=== PATIENT | male | born 1965 | race Caucasian/White ===

== ENCOUNTER → 2018-06-15 01:42 | Outpatient (CLI) | payer BC, SELFPAY ==
--- NOTE | 2018-06-15 10:10 | OPPNE_ITS ---
DATE OF PROCEDURE: JUNE 15, 2018 HISTORY: Mr. Adler has osteoarthritis of his right hip. He had an excellent result from intraarticular injection of corticosteroid in his right hip in November prior to a trip to [place] and [place]. The beneficial effects have now started to wear off. He understands that he will eventually need to undergo a right total hip arthroplasty. PROCEDURE: The patient is greeted in the Fluoroscopy Suite. His anterolateral thigh is prepped with Betadine. I then used 10 cc. of 1% Lidocaine to create an anesthetic wheal over the anterolateral thigh. After waiting approximately 2 1 /2 minutes, I then placed a #22 gauge spinal needle into the right hip joint under fluoroscopic control. I repositioned the needle once making sure I am inside the capsule. I then note that the tip of the needle hits the base of the femoral head indicating proper placement. The patient tolerated this well. I injected the joint with approximately 7 cc. of 0.5% Marcaine plain and 80 mg. of Depo-Medrol. He had no problems or complications. There is no evidence of any bleeding. Routine post-injection instructions were given including ice if he has any local discomfort.
--- NOTE | 2018-06-15 10:15 | DI.REPORT_ITS ---
SYMPTOM/DIAGNOSIS: DJD RIGHT HIP, RT HIP INJECTION FLUOROSCOPY 06/15 Fluoroscopy Time: 1 sec Fluoroscopy was utilized by Dr. Gonzalez during right hip injection. Hard copy shows injection in to the right hip joint.
== END ==
PROVIDERS: Visit Provider Orthopaedic Surgery
DX: M16.11 Unilateral primary osteoarthritis, right hip (principal)
CPT/HCPCS: 20610; 77002

== ENCOUNTER 2019-05-10 02:45 | Outpatient (CLI) | payer OTHER, SELFPAY ==
[2019-05-10 08:22] LABS: Anion Gap 9.2 mmol/L (3-11); BUN 18 mg/dL (7-18); CO2 26.8 mmol/L (21.0-32.0); CREATININE 0.87 mg/dL (0.70-1.30); Calcium 8.7 mg/dL (8.5-10.1); Calculated LDL 173 mg/dL; Chloride 103 mmol/L (98-107); Cholesterol 240 mg/dL (50-200); Glucose 92 mg/dL (70-100); HDL Cholesterol 56 mg/dL (40-60); Potassium 4.4 mmol/L (3.5-5.1); Sodium 139 mmol/L (136-145); Triglyceride 59 mg/dL (30-150)
== END 2019-05-10 03:05 ==
PROVIDERS: PCP Internal Medicine; Visit Provider Internal Medicine
DX: I10 Essential (primary) hypertension (principal); E78.5 Hyperlipidemia, unspecified
CPT/HCPCS: 36415; 80048; 80061; 83721

== ENCOUNTER 2019-06-12 12:18 | Outpatient (CLI) | payer OTHER, SELFPAY ==
--- NOTE | 2019-06-12 12:35 | DI.RAD_ITS ---
SYMPTOMS/DIAGNOSIS: LEFT FOOT PAIN, M79.672 LEFT FOOT: Three views were obtained. There are prominent hypertrophic degenerative changes at multiple sites. There is a mild hallux valgus deformity. No other focal bony abnormality seen.
== END 2019-06-12 12:38 ==
PROVIDERS: PCP Internal Medicine; Visit Provider Podiatrist Foot & Ankle Surgery
DX: M79.672 Pain in left foot (principal); M20.12 Hallux valgus (acquired), left foot; M19.072 Primary osteoarthritis, left ankle and foot
CPT/HCPCS: 73630

== ENCOUNTER 2019-10-18 08:23 | Day surgery (SDC) | payer OTHER, SELFPAY ==
[2019-10-18 08:42] VITALS: BP 125/80; PULSE 60; RESP 16; TEMP 36.7; O2SAT 97
[2019-10-18] MEDS: Lactated Ringers 1,000 ML 80 ML IV (09:10)
[2019-10-18] MEDS: ceFAZolin 2 GM/50 ML BAG IVPB (10:42)
[2019-10-18] MEDS: Sodium Bicarbonate 50 MEQ/50 ML VIAL (10:53)
[2019-10-18] MEDS: Lidocaine 1% Multi-Dose 50 ML VIAL (10:53)
--- NOTE | 2019-10-18 11:06 | W.PM.DSUDISC ---
Discharge Plan Disposition Patient Disposition: HOME Condition: Good Discharge Details Reason For Visit: Right Carpal Tunnel Syndrome Attending Provider: Gabriel Carias Primary Care Provider: Roel Nova Home Meds and New Rx's Prescriptions: New acetaminophen 500 mg tablet 1,000 mg PO Q8H PRN (Reason: pain) Qty: 60 RF: 3 ibuprofen 600 mg tablet 600 mg PO TID PRNQty: 60 RF: 3 No Action valacyclovir 500 mg tablet 500 mg PO BID RF: 0 lisinopril 10 mg tablet 5 mg PO DAILY RF: 0 aspirin [Aspir-81] 81 MG tablet,delayed release (DR/EC) 81 mg PO DAILY RF: 0 Discharge Instructions Stand Alone Forms: Aretha Trevino Tunnel Release Referrals: Gabriel Carias MD [ [facility] STAFF PHYSICIAN] - Activity:: Elevate Remove Dressings/Wound Care:: 48 hours Shower/Bathe:: 48 hours Diet:: As Tolerated Discharge Orders Discharge Orders: Discharge Order (Routine); Ordered 10/18/19 Ordered By: Gabriel Carias DS: Diagnosis Discharge Diagnosis (1) Right carpal tunnel syndrome: Status: Acute
[2019-10-18 11:38] VITALS: BP 126/86; PULSE 54; RESP 16; TEMP 36.3; O2SAT 98
--- NOTE | 2019-10-18 14:21 | W.PM.OP ---
Date of service: 10/18/19 Time of Service: 11:21 Operative Note Operative Note DATE OF PROCEDURE: 10/18/19 PRE-OP DIAGNOSIS: Right Carpal Tunnel Syndrome POST-OP DIAGNOSIS: same PROCEDURE: Right Endoscopic Carpal Tunnel Release SURGEON: Gabriel Carias ANESTHESIA: GETHolly ESTIMATED BLOOD LOSS: 0 PATHOLOGY: none sent TOURNIQUET TIME: 6 COMPLICATIONS: None Patient was transported to: same day Patient's condition: stable Indications: I have seen David in clinic for symptoms of carpal tunnel syndrome. The numbness, tingling, and pain limited function. Clinical exam findings confirmed the diagnosis of carpal tunnel syndrome. Nonoperative measures such as bracing, time, activity modifications had been tried but disability and pain persisted. I discussed carpal tunnel release with the patient. I reviewed the risks of the procedure to include, but not limited to, bleeding, infection, pain, stiffness, incomplete release, damage to nerves or vessels, persistent numbness, recurrence. Despite these risks, the patient elected to proceed. Findings: There was tightened carpal tunnel. This was dilated and released successfully with the endoscopic with increased space within the tunnel. The antebrachial fascia was released proximally freeing the median nerve at the wrist. Procedure Description: David was greeted in the preoperative holding area where the correct side was identified and marked. The consent was reviewed with the patient and signed. The history and physical was updated. All questions were answered. David was taken back to the operating room. The patient was placed into the supine position on the operating room table with the right arm on an arm board. A nonsterile tourniquet was placed high onto the arm. All bony prominences were well padded. Prophylactic antibiotics in the form of Cefazolin were administered. The right arm was then prepped with Chloraprep and draped in a standard fashion with stockinette and extremity drape. A timeout to confirm correct identity, side and site, procedure, allergies, anesthesia, and medical concerns was performed. The surgical site was marked in the volar wrist creases in line with the radial border of the fourth ray. This area was anesthetized with approximately 6cc of 1% Lidocaine. The limb was then exsanguinated with an Esmarch. The skin was incised with a 15 blade, approximately 1cm. The skin only was cut and the deeper tissue was dissected bluntly with a tenotomy scissor, avoiding passing nerve and venous structures. The fascia was penetrated and opened bluntly. A two-prong skin hook was placed under this proximal fascial edge. A series of hamate finders were used to identify and dilate the carpal tunnel. Synovial elevator was used to free synovial attachments to the underside of the transverse carpal ligament. My thumb was kept in the palm to marlee the distal extent of the carpal tunnel and correctly position the hand. The Microaire endoscope was inserted without difficulty and without resistance. Excellent visualization showed horizontally running fibers of the transverse carpal ligament (TCL). The distal extent of the TCL was visualized and the end of the scope palpated with the thumb. The blade was elevated and withdrawn from distal to proximal. The TCL was split into two flaps. The endoscope was reinserted to confirm complete release and any remnant ligament was incised. The scope was withdrawn and the proximal aspect of the carpal tunnel was grossly inspected and appeared release with the median nerve visible. The antebrachial fascia at the level of the wrist was then freed from the overlying skin and then the underlying median nerve with blunt dissection. This was transected longitudinally for about 3cm proximal to the wrist incision. The wound was then irrigated with easy flow of irrigant distally and proximally. The incision was closed with a single 4-0 Nylon suture. The wound was dressed with Xeroform, Gauze, Kerlix and Roberto. The tourniquet was deflated with the initial dressing and held with some pressure. Blood flow returned easily to all digits with capillary refill less than 2 seconds. The patient tolerated the procedure well and was returned to the Same Day Surgery area in a stable condition suffering no known complication.
== END 2019-10-18 12:14 | disposition home or self-care (01) ==
PROVIDERS: PCP Internal Medicine; Visit Provider Student in an Organized Health Care Education/Training Program
PROC: 01N54ZZ Release Median Nerve, Percutaneous Endoscopic Approach (ICD-10-PCS; CPT 29848; principal; 2019-10-18 10:15)
DX: G56.01 Carpal tunnel syndrome, right upper limb (principal)
CPT/HCPCS: 29848; J0690; J1885; L3650

== ENCOUNTER 2019-10-22 08:30 | Day surgery (SDC) | payer OTHER, SELFPAY ==
[2019-10-22 08:41] VITALS: BP 143/95; PULSE 60; RESP 16; TEMP 36.2; O2SAT 95
[2019-10-22] MEDS: Lactated Ringers 1,000 ML 80 ML IV (09:02)
[2019-10-22] MEDS: ceFAZolin 2 GM/50 ML BAG IVPB (09:47)
[2019-10-22] MEDS: Lidocaine 1% Multi-Dose 50 ML VIAL (09:54)
[2019-10-22] MEDS: Sodium Bicarbonate 50 MEQ/50 ML VIAL (09:54)
--- NOTE | 2019-10-22 10:07 | W.PM.DSUDISC ---
Discharge Plan Disposition Patient Disposition: HOME Condition: Good Discharge Details Reason For Visit: (L) CTS Attending Provider: Gabriel Carias Primary Care Provider: Roel Nova Meds and New Rx's Prescriptions: Continued valacyclovir 500 mg tablet 500 mg PO BID RF: 0 lisinopril 10 mg tablet 5 mg PO DAILY RF: 0 aspirin [Aspir-81] 81 MG tablet,delayed release (DR/EC) 81 mg PO DAILY RF: 0 acetaminophen 500 mg tablet 1,000 mg PO Q8H PRN (Reason: pain) Qty: 60 RF: 3 ibuprofen 600 mg tablet 600 mg PO TID PRNQty: 60 RF: 3 Discharge Instructions Stand Alone Forms: Aretha Trevino Tunnel Release Referrals: Gabriel Carias MD [ [facility] STAFF PHYSICIAN] - Activity:: Elevate Remove Dressings/Wound Care:: 48 hours Shower/Bathe:: 48 hours Diet:: As Tolerated Discharge Orders Discharge Orders: Discharge Order (Routine); Ordered 10/22/19 Ordered By: Gabriel Carias DS: Diagnosis Discharge Diagnosis (1) Left carpal tunnel syndrome: Status: Acute
--- NOTE | 2019-10-22 10:25 | W.PM.OP ---
Date of service: 10/22/19 Time of Service: 10:25 Operative Note Operative Note DATE OF PROCEDURE: 10/22/19 PRE-OP DIAGNOSIS: Left Carpal Tunnel Syndrome POST-OP DIAGNOSIS: same PROCEDURE: Left Endoscopic Carpal Tunnel Release SURGEON: Gabriel Carias ANESTHESIA: JOEL ESTIMATED BLOOD LOSS: 0 PATHOLOGY: none sent TOURNIQUET TIME: 7 COMPLICATIONS: None Patient was transported to: same day Patient's condition: stable Indications: I have seen David in clinic for symptoms of carpal tunnel syndrome. The numbness, tingling, and pain limited function. Clinical exam findings confirmed the diagnosis of carpal tunnel syndrome. Nonoperative measures such as bracing, time, activity modifications had been tried but disability and pain persisted. I discussed carpal tunnel release with the patient. I reviewed the risks of the procedure to include, but not limited to, bleeding, infection, pain, stiffness, incomplete release, damage to nerves or vessels, persistent numbness, recurrence. Despite these risks, the patient elected to proceed. Findings: There was tightened carpal tunnel. This was dilated and released successfully with the endoscopic with increased space within the tunnel. The antebrachial fascia was released proximally freeing the median nerve at the wrist. Procedure Description: David was greeted in the preoperative holding area where the correct side was identified and marked. The consent was reviewed with the patient and signed. The history and physical was updated. All questions were answered. David was taken back to the operating room. The patient was placed into the supine position on the operating room table with the left arm on an arm board. A nonsterile tourniquet was placed high onto the arm. All bony prominences were well padded. Prophylactic antibiotics in the form of Cefazolin were administered. The left arm was then prepped with Chloraprep and draped in a standard fashion with stockinette and extremity drape. A timeout to confirm correct identity, side and site, procedure, allergies, anesthesia, and medical concerns was performed. The surgical site was marked in the volar wrist creases in line with the radial border of the fourth ray. This area was anesthetized with approximately 6cc of 1% Lidocaine. The limb was then exsanguinated with an Esmarch. The skin was incised with a 15 blade, approximately 1cm. The skin only was cut and the deeper tissue was dissected bluntly with a tenotomy scissor, avoiding passing nerve and venous structures. The fascia was penetrated and opened bluntly. A two-prong skin hook was placed under this proximal fascial edge. A series of hamate finders were used to identify and dilate the carpal tunnel. Synovial elevator was used to free synovial attachments to the underside of the transverse carpal ligament. My thumb was kept in the palm to marlee the distal extent of the carpal tunnel and correctly position the hand. The Microaire endoscope was inserted without difficulty and without resistance. Excellent visualization showed horizontally running fibers of the transverse carpal ligament (TCL). The distal extent of the TCL was visualized and the end of the scope palpated with the thumb. The blade was elevated and withdrawn from distal to proximal. The TCL was split into two flaps. The endoscope was reinserted to confirm complete release and any remnant ligament was incised. The scope was withdrawn and the proximal aspect of the carpal tunnel was grossly inspected and appeared release with the median nerve visible. The antebrachial fascia at the level of the wrist was then freed from the overlying skin and then the underlying median nerve with blunt dissection. This was transected longitudinally for about 3cm proximal to the wrist incision. The wound was then irrigated with easy flow of irrigant distally and proximally. The incision was closed with a single 4-0 Nylon suture. The wound was dressed with Xeroform, Gauze, Kerlix and Roberto. The tourniquet was deflated with the initial dressing and held with some pressure. Blood flow returned easily to all digits with capillary refill less than 2 seconds. The patient tolerated the procedure well and was returned to the Same Day Surgery area in a stable condition suffering no known complication.
[2019-10-22 10:55] VITALS: BP 137/95; PULSE 57; RESP 18; TEMP 36.1; O2SAT 96
== END 2019-10-22 11:20 | disposition home or self-care (01) ==
LOC: SUR 13:27
PROVIDERS: PCP Internal Medicine; Visit Provider Student in an Organized Health Care Education/Training Program
PROC: 01N54ZZ Release Median Nerve, Percutaneous Endoscopic Approach (ICD-10-PCS; CPT 29848; principal; 2019-10-22 10:30)
DX: G56.02 Carpal tunnel syndrome, left upper limb (principal)
CPT/HCPCS: 29848; J0690

== ENCOUNTER 2019-11-05 02:26 | Outpatient (CLI) | payer OTHER, SELFPAY ==
[2019-11-05 08:17] LABS: Anion Gap 8.2 mmol/L (3-11); BUN 16 mg/dL (7-18); CO2 29.8 mmol/L (21.0-32.0); CREATININE 0.92 mg/dL (0.70-1.30); Calculated LDL 163 mg/dL; Chloride 103 mmol/L (98-107); Cholesterol 239 mg/dL (<200); Glucose 86 mg/dL (74-106); HDL Cholesterol 60 mg/dL (40-60); Potassium 4.4 mmol/L (3.5-5.1); Sodium 141 mmol/L (136-145); Triglyceride 83 mg/dL (<150)
== END 2019-11-05 02:46 ==
PROVIDERS: PCP Internal Medicine; Visit Provider Internal Medicine
DX: E78.5 Hyperlipidemia, unspecified (principal); I10 Essential (primary) hypertension
CPT/HCPCS: 36415; 80048; 80061

== ENCOUNTER 2020-10-30 21:58 | Outpatient (REF) | payer OTHER, SELFPAY ==
[2020-10-30 22:22] LABS: Abs Immature Grans 0.03 10^3/uL (0.0-0.06); Absolute Basophil Count 0.09 10^3/uL (0.0-0.2); Absolute Eosinophil Count 0.22 10^3/uL (0.0-0.7); Absolute Lymphocyte Count 2.71 10^3/uL (1.2-3.4); Absolute Monocyte Count 1.08 10^3/uL (0.1-0.8); Absolute Neutrophil Count 3.81 10^3/uL (1.2-6.7); Basophils % 1.1; Eosinophils % 2.8; HGB 15.5 g/dL (13.5-17.5); Immature Grans % 0.4; Lymphocytes % 34.1; MCH 30.7 pg (27.0-33.0); MCHC 34.4 % (32.0-36.0); MCV 89.1 fL (80-95); MPV 9.5 fL (8.0-11.0); Monocytes % 13.6; Nucleated RBC 0 %; Platelet Count 294 10^3/uL (130-400); RBC 5.05 10^6/uL (4.36-5.78); RDW 12.1 % (11.8-14.1); RDW-SD 39.9 fL; WBC 7.94 10^3/uL (4.4-10.8)
[2020-10-30 22:26] LABS: Anion Gap 9.9 mmol/L (3-11); BUN 23 mg/dL (7-18); CO2 26.1 mmol/L (21.0-32.0); CREATININE 1.03 mg/dL (0.70-1.30); Calcium 9.2 mg/dL (8.5-10.1); Chloride 101 mmol/L (98-107); Glucose 85 mg/dL (74-106); Potassium 4.1 mmol/L (3.5-5.1); Sodium 137 mmol/L (136-145)
== END 2020-10-30 22:18 ==
LOC: NCHCN 21:58
PROVIDERS: PCP Internal Medicine; Visit Provider Internal Medicine
DX: R10.31 Right lower quadrant pain (principal)
CPT/HCPCS: 80048; 85025

== ENCOUNTER 2020-11-04 12:47 | Outpatient (REF) | payer OTHER, SELFPAY ==
[2020-11-04 18:13] LABS: Calculated LDL 184 mg/dL (<100); Cholesterol 258 mg/dL (<200); HDL Cholesterol 60 mg/dL (40-60); Triglyceride 72 mg/dL (<150)
[2020-11-04 22:37] LABS: PSA, Screening 1.6 ng/mL (0.0-3.5)
== END 2020-11-04 13:07 ==
LOC: NCHCN 12:47
PROVIDERS: PCP Internal Medicine; Visit Provider Internal Medicine
DX: Z00.00 Encounter for general adult medical examination without abnormal findings (principal); I10 Essential (primary) hypertension; E78.5 Hyperlipidemia, unspecified; Z12.5 Encounter for screening for malignant neoplasm of prostate
CPT/HCPCS: 80061; 84153

== ENCOUNTER 2020-11-12 03:09 | Outpatient (CLI) | payer OTHER, SELFPAY ==
--- NOTE | 2020-11-12 | DI.US_ITS ---
EXAM: US RENAL CLINICAL HISTORY: RT FLANK PAIN, R10.9. TECHNIQUE: Gonzalez scale, color and spectral Doppler were used. COMPARISON: No exams were available for comparison FINDINGS: Renal size in cm: Right: 10.9. Left: 13.9. Echogenicity: Normal. Hydronephrosis: No. Cyst or mass: No. Nephrolithiasis: No. Other findings: None. Bladder:Normal. Ureteral jets: Right: Visualized and unremarkable. Left: Visualized and unremarkable. Prevoid vol:226 cc Postvoid vol:47 cc Prostate: 26 cc Renal color flow: Symmetric and within normal limits. IMPRESSION: 1. No evidence of nephrolithiasis or hydronephrosis. 2. Small postvoid urinary bladder residual. DATA REPOSITORY:
== END 2020-11-12 03:29 ==
PROVIDERS: PCP Internal Medicine; Visit Provider Internal Medicine
DX: R10.9 Unspecified abdominal pain (principal); R39.198 Other difficulties with micturition
CPT/HCPCS: 76770

== ENCOUNTER 2021-02-10 15:47 | Emergency (ER) | payer OTHER, SELFPAY ==
[2021-02-10 16:01] VITALS: BP 145/82; PULSE 70; RESP 16; TEMP 36.9; O2SAT 99
--- NOTE | 2021-02-10 16:24 | ED.GENADUL_ITS ---
Discharge Plan Disposition Patient Disposition: HOME Condition: Improving Discharge Details Clinical Impression: Tinea corporis Primary Care Provider: Roel Nova ED Provider: Jean Paul Martini Home Meds and New Rx's Prescriptions: New nystatin 100,000 unit/mL suspension 5 ml PO TID 5 Days Qty: 75 RF: 0 fluconazole 200 mg tablet 200 mg PO DAILY 14 Days Qty: 14 RF: 0 Continued valacyclovir 500 mg tablet 500 mg PO BID RF: 0 lisinopril 10 mg tablet 5 mg PO DAILY RF: 0 aspirin [Aspir-81] 81 MG tablet,delayed release (DR/EC) 81 mg PO DAILY RF: 0 acetaminophen 500 mg tablet 1,000 mg PO Q8H PRN (Reason: pain) Qty: 60 RF: 3 ibuprofen 600 mg tablet 600 mg PO TID PRNQty: 60 RF: 3 Discontinued fluconazole 100 mg tablet 100 mg PO DAILY RF: 0 Discharge Instructions Instructions: Skin Yeast Infection (ED) Additional Instructions: Nystatin oral solution 5 cc swish and spit as directed by prescription. Apply combination antifungal and steroid cream topically twice daily until finished. Take fluconazole once daily for 2 weeks. May use famotidine, available [id number] once daily as an antihistamine. You may also use Benadryl 25 to 50 mg at night for an antihistamine and to aid with sleep We will ask care management to make you a follow-up appointment in Dr. Nova's office for recheck. Your labs including CBC, comprehensive panel, CRP were reassuring. Return to the ER for any acute concerns. Medical Decision Making 55-year-old male who has a pruritic rash to begin in his groin 1 week ago. Began to spread when he was in [place], he was seen at an urgent care, placed on a prednisone taper 50 mg dropping by 10 mg every 2 days over total of 10 days. This offered little improvement, he was seen at his primary care physician's office yesterday, given 100 mg fluconazole once and then asked to take 100 mg daily for the next 5 days. He now presents with persistent itching and concern for the rash. It does appear consistent with fungal infection, tinea corporis and pruritus. Question some component of thrush. Will screen with blood work to check his liver function and basic labs. Discussed with pharmacy. Little to low topical or mucous membrane absorption and placed on swish and spit nystatin 3 times a day for 5 days, and continue ketoconazole 200 mg daily for 2 weeks. Labs are reassuring. Patient understands outpatient course of treatment. We will arrange follow-up for him in clinic. He is stable for discharge to home HPI General Mode of arrival: ambulatory . Date/Time Provider Initiated Documentation: 02/10/21 15:56 . Limitations to Documentation: no limitations . Information obtained by: patient . History of Present Illness 55 year old M presents to the emergency department with the chief complaint of Itching rash, started in the groin, described as moderate, Quality is described as dull and constant, Patient started experiencing this day(s) and it has been constant. No relieving factors improve symptom(s), No exacerbating factors reported . Patient notes no other symptoms.. Patient did receive the following treatments prior to arrival, none Related Data Home Medications Medication Instructions Recorded Confirmed aspirin [Aspir-81] 81 mg PO DAILY 05/29/14 02/10/21 lisinopril 10 mg tablet 5 mg PO DAILY tab 11/21/18 02/10/21 valacyclovir 500 mg tablet 500 mg PO BID 11/21/18 02/10/21 acetaminophen 1,000 mg PO Q8H PRN #60 tab 10/18/19 02/10/21 ibuprofen 600 mg PO TID PRN #60 tab 10/18/19 02/10/21 fluconazole 200 mg PO DAILY 14 Days #14 tab 02/10/21 nystatin 5 ml PO TID 5 Days #75 ml 02/10/21 Previous Rx's Medication Instructions Recorded acetaminophen 1,000 mg PO Q8H PRN #60 tab 10/18/19 ibuprofen 600 mg PO TID PRN #60 tab 10/18/19 fluconazole 200 mg PO DAILY 14 Days #14 tab 02/10/21 nystatin 5 ml PO TID 5 Days #75 ml 02/10/21 Allergies Allergy/AdvReac Type Severity Reaction Status Date / Time amoxicillin Allergy Mild Unverified 02/10/21 16:24 General Stated Complaint: RashLesion JON: 3 Review of Systems Narrative: 6 systems reviewed and otherwise [facility] Medical History BMI 29.0-29.9,adult Herniated disc Hypercholesteremia Hypertension Obstructive sleep apnea Sensorineural hearing loss, bilateral (09/29/16) Surgical History (Updated 10/28/19 @ 09:20 by DAVID Pastor) History of carpal tunnel release R ECTR Left carpal tunnel syndrome s/p ECTR 10/22/2019 Right carpal tunnel syndrome s/p ECTR 10/18/2019 Social History Smoking/Tobacco Use Status: Never Smoking risk assessment performed?: Yes Alcohol Intake: current Alcohol Intake frequency: 0-2 drinks per day Drug use: Never Substance use type: does not use Household members: spouse Current gender identity: male Do you feel safe at home: Yes Do you feel safe in your relationship?: Yes Exam Narrative Exam Narrative: GEN: awake, alert, oriented 3. Pleasant, well groomed, interactive. HEAD: Normocephalic, atraumatic ENT: Mucous membranes moist, oropharynx unremarkable, External ear exam unremarkable EYES: PERRL, EOMI NECK: Full ROM, no ASMITA, no menigismus CHEST/RESP: Nontender, clear to auscultation bilateral, no wheeze/rhonchi/rales CARDIOVASCULAR: RRR, no murmur, rub demi. 2+ Rad pulse bilateral ABDOMEN: Soft, nontender, no mass. +Bowel sounds EXT: Full ROM, no edema There is a beefy red, intertriginous rash primarily upper quadrant and waistline, slight scaling, also present in small patches on extremities and thorax. Neuro: Grossly normal neurologic exam, conversant, interactive. Psych: Speech fluent, thoughts congruent, affect normal Course Vital Signs Vital signs: Vital Signs Temperature 36.9 C 02/10/21 16:01 Pulse 70 02/10/21 16:01 Respiratory Rate 16 02/10/21 16:01 Blood Pressure 145/82 H 02/10/21 16:01 Pulse Oximetry 99 02/10/21 16:01 Temperature 36.9 C 02/10/21 16:01 Temperature Source Temporal Artery Scan 02/10/21 16:01 Pulse 70 02/10/21 16:01 Respiratory Rate 16 02/10/21 16:01 Respiratory Effort Non-Labored 02/10/21 16:22 Blood Pressure 145/82 H 02/10/21 16:01 Blood Pressure Position Supine 02/10/21 16:01 Pulse Oximetry 99 02/10/21 16:01 Oxygen Delivery Method Room Air 02/10/21 16:01 Oxygen Flow Rate 0 02/10/21 16:01 Pain Level 2 02/10/21 16:01
[2021-02-10] MEDS: Nystatin 500000 UNITS/5 ML SUSP 5ML CUP PO (17:01)
[2021-02-10 17:04] LABS: Abs Immature Grans 0.06 10^3/uL (0.0-0.06); Absolute Basophil Count 0.08 10^3/uL (0.0-0.2); Absolute Eosinophil Count 0.77 10^3/uL (0.0-0.7); Absolute Lymphocyte Count 2.44 10^3/uL (1.2-3.4); Absolute Neutrophil Count 4.04 10^3/uL (1.2-6.7); Basophils % 0.9; HCT 46.3 % (40.0-50.0); HGB 15.9 g/dL (13.5-17.5); Immature Grans % 0.7; Lymphocytes % 28.4; MCH 30.9 pg (27.0-33.0); MCHC 34.3 % (32.0-36.0); MCV 90.1 fL (80-95); MPV 8.9 fL (8.0-11.0); Nucleated RBC 0 %; Platelet Count 274 10^3/uL (130-400); RBC 5.14 10^6/uL (4.36-5.78); RDW 12.5 % (11.8-14.1); RDW-SD 41.2 fL; WBC 8.59 10^3/uL (4.4-10.8)
[2021-02-10 17:15] LABS: ALT 56 U/L (16-63); AST 20 U/L (15-37); Albumin 4.3 g/dL (3.4-5.0); Alkaline Phosphatase 102 U/L (46-116); Anion Gap 9.4 mmol/L (3-11); BUN 16 mg/dL (7-18); Bilirubin, Total 0.3 mg/dL (0.2-1.0); C-Reactive Protein 0.07 mg/dL (0.0-0.3); CO2 27.6 mmol/L (21.0-32.0); Calcium 9.6 mg/dL (8.5-10.1); Chloride 103 mmol/L (98-107); Glucose 92 mg/dL (74-106); Potassium 4.1 mmol/L (3.5-5.1); Sodium 140 mmol/L (136-145); Total Protein 8.1 g/dL (6.4-8.2)
--- NOTE | 2021-02-10 17:18 | NUR.NOTE ---
Nursing Note: Referral to [facility] faxed for follow up in 3 to 5 days for recheck of rash. Rose Marie Aggarwal
== END 2021-02-10 17:37 | disposition home or self-care (01) ==
PROVIDERS: Emergency Provider Emergency Medicine; PCP Internal Medicine
DX: B35.4 Tinea corporis (principal); L29.8 Other pruritus
CPT/HCPCS: 36415; 80053; 99283; 85025; 86140; J3490

== ENCOUNTER 2021-02-12 15:30 | Outpatient (REF) | payer OTHER, SELFPAY ==
--- NOTE | 2021-02-12 11:30 | SKI_PTH ---
PATIENT: Rudy Adler LOC: [facility] U#:[id number] AGE/SX: 55/M ROOM: RE02/12/[address]: Alex Jesus : 1965 BED: DIS: 02/12/2021 SPEC #: [id number] RECD: 02/15/21 12:37 STATUS: MEMO REQ #: [id number] JULISSA: 02/12/21 11:[address]: Alex Jesus DEPT: Surgical Specimen RECD BY: Lourdes Mg ENTERED: 02/15/21 12:38 SP TYPE: TEDDY KULKARNI DR: Roel Nova Tissues: 1 - SKIN BIOPSY(SHAVE/PUNCH) Procedures: SKIN LEVEL 4 Comments: [id number]
== END 2021-02-12 15:31 | disposition home or self-care (01) ==
LOC: NCHCN 15:30
PROVIDERS: PCP Internal Medicine; Visit Provider Family Medicine
DX: L30.8 Other specified dermatitis (principal)
CPT/HCPCS: 88305

== ENCOUNTER 2021-03-11 02:02 | Outpatient (CLI) | payer OTHER, SELFPAY ==
--- NOTE | 2021-03-11 12:39 | DI.RAD_ITS ---
Exam(s) XR ELBOW LT COMPLETE EXAM: XR ELBOW LT COMPLETE CLINICAL HISTORY: LT OLECRANON BURSITIS, M70.22. TECHNIQUE: 2D digital imaging was performed. COMPARISON: No exams were available for comparison FINDINGS: There is no evidence of acute fracture or joint effusion. Radial head appears unremarkable as does t he capitellum. Posteriorly there are multiple contiguous calcifications in the slightly swollen olecranon bursa, jus t superficial to the triceps insertion. These measure or 15 millimeters total length by 3 millimeter s wide. On the frontal view there are cortical findings at the level of both epicondyles consistent with prob able epicondylitis. IMPRESSION: Posterior calcifications-calcific olecranon bursitis. Bilateral epicondylitis. DATA REPOSITORY: RADIATION DOSE DELIVERED:
== END 2021-03-11 02:22 ==
PROVIDERS: PCP Internal Medicine; Visit Provider Family Medicine
DX: M70.22 Olecranon bursitis, left elbow (principal)
CPT/HCPCS: 73080

== ENCOUNTER 2021-05-27 01:56 | Outpatient (CLI) | payer OTHER, SELFPAY ==
--- NOTE | 2021-05-27 08:00 | DI.RAD_ITS ---
Exam(s) RF JOINT INJECTION FLUORO GUID EXAM: RF JOINT INJECTION FLUORO GUID CLINICAL HISTORY: R HIP INJ UNDER FLUORO,arthritis rt hip, m16.11 TECHNIQUE: Fluoroscopy provided. Radiologist not present. CONTRAST MATERIAL: None COMPARISON: No exams were available for comparison FINDINGS: Fluoroscopy was provided for Dr. Carias during therapeutic right hip injection. Submitted image(s) reveal the placement from lateral approach at the junction of lateral aspect of th e femoral head and neck. There is intra articular contrast injected. Please refer to the procedure report for complete details. Cumulative Dose: winter Gupta=0.079 mGy IMPRESSION: RADIATION DOSE DELIVERED:
--- NOTE | 2021-05-27 08:00 | DI.RAD_ITS ---
Exam(s) RF JOINT INJECTION FLUORO GUID EXAM: RF JOINT INJECTION FLUORO GUID CLINICAL HISTORY: L HIP INJ UNDER FLUORO,arthritis lt hip, m16.12 TECHNIQUE: Fluoroscopy provided. Radiologist not present. CONTRAST MATERIAL: None COMPARISON: No exams were available for comparison FINDINGS: Fluoroscopy was provided for Dr. Carias during therapeutic left hip injection.. Submitted image(s) reveal needle placement at the lateral aspect of the femoral head-neck junction. Contrast injected. Please refer to the procedure report for complete details. Cumulative Dose: Ka,r=0.0959 mGy IMPRESSION: RADIATION DOSE DELIVERED:
[2021-05-27] MEDS: Bupivacaine 0.5% Pres-Free 10 ML VIAL 5 ML IJ (14:10)
[2021-05-27] MEDS: methylPREDNISolone ACETATE 80 MG/ML VIAL IM ×2 (14:11→14:12)
[2021-05-27] MEDS: Omnipaque 300 MG/ML 10 ML BTL IJ (14:11)
--- NOTE | 2021-05-28 07:32 | OPPNE_ITS ---
Date of service: 05/27/21 Time of Service: 13:32 Procedure Note Date of procedure: 05/27/21 Procedure: Bilateral Hip Injection with Fluoroscopic Guidance Surgeon/Proceduralist/Physician: Gabriel Carias Procedure Diagnosis: Bilateral Hip Impingement and Osteoarthritis Procedure Indications: David has had persistent pain of the bilateral hip and groin. He has hip impingement and early osteoarthritis. Noninvasive measures have been tried. To serve as both diagnostic and therapeutic, an injection under fluoroscopy was recommended. I had discussed the risks of the procedure and the patient elected to proceed. Procedure Description: David was greeted in the flouroscopy room. The correct side was identified and the consent was reviewed with the patient and signed. The patient was then placed in the supine position on the fluoroscopy table. The RIGHT hip was then prepped with Chloraprep. The anterolateral injection starting point was identiifed by bony landmarks and fluoroscopy. The skin and soft tissue in the tract of the injection was anesthetized with 1% Lidocaine. A spinal needle was then inserted deep into the hip joint at the level of the lateral femoral neck under fluoroscopic guidance. A small amount of Omnipaque solution was injected to confirm intraarticular placement. Once confirmed, the hip was injected with 5cc of 0.5% Bupivicaine and 80mg of Depo- Medrol. A bandaid was placed on the injection site. Attention was then turned to the left hip. The LEFT hip was then prepped with Chloraprep. The anterolateral injection starting point was identiifed by bony landmarks and fluoroscopy. The skin and soft tissue in the tract of the injection was anesthetized with 1% Lidocaine. A spinal needle was then inserted deep into the hip joint at the level of the lateral femoral neck under fluoroscopic guidance. A small amount of Omnipaque solution was injected to confirm intraarticular placement. Once confirmed, the hip was injected with 5cc of 0.5% Bupivicaine and 80mg of Depo-Medrol. A bandaid was placed on the injection site. The patient tolerated the procedure well and noted improvement in pre-injection pain.
== END 2021-05-27 02:16 ==
PROVIDERS: PCP Internal Medicine; Visit Provider Student in an Organized Health Care Education/Training Program
DX: M16.12 Unilateral primary osteoarthritis, left hip (principal); M16.11 Unilateral primary osteoarthritis, right hip; M25.852 Other specified joint disorders, left hip; M25.851 Other specified joint disorders, right hip; M25.551 Pain in right hip; M25.552 Pain in left hip; R10.31 Right lower quadrant pain; R10.32 Left lower quadrant pain
CPT/HCPCS: 20610 ×2; 77002; J1040

== ENCOUNTER 2021-07-26 16:30 | Outpatient (CLI) | payer OTHER, SELFPAY ==
--- NOTE | 2021-07-26 15:45 | DI.RAD_ITS ---
Exam(s) XR HIP LT COMPLETE AP PELVIS EXAM: XR HIP LT COMPLETE AP PELVIS INDICATION: left hip pain. COMPARISON: CR PELVIS AP from 10/02/2017 TECHNIQUE: 2D digital imaging was performed. FINDINGS: Is moderate narrowing of the right hip joint space and periarticular spurring. Findings have progres sed somewhat when compared with the previous exam. There is mild narrowing of the left hip joint spa ce and mild periarticular spurring. Enthesophytes are noted at the iliac wings. There is some spurr ing at both SI joints, left greater than right. IMPRESSION: Moderate to severe degenerative changes of the right hip. [id number] degenerative changes of t he left hip. DATA REPOSITORY: RADIATION DOSE DELIVERED:
== END 2021-07-26 16:31 | disposition home or self-care (01) ==
LOC: DIORS 16:30
PROVIDERS: PCP Internal Medicine; Referring Provider Internal Medicine; Visit Provider Physician Assistant
DX: M25.552 Pain in left hip (principal); M16.0 Bilateral primary osteoarthritis of hip
CPT/HCPCS: 73502

== ENCOUNTER 2021-10-18 03:53 | Outpatient (CLI) | payer OTHER, SELFPAY ==
[2021-10-18 10:31] LABS: Source Nasal/Nares
[2021-10-18 14:17] LABS: COVID-19 PCR Negative (Negative)
== END 2021-10-18 03:54 | disposition home or self-care (01) ==
LOC: LBO 03:58
PROVIDERS: PCP Family Medicine; Visit Provider Student in an Organized Health Care Education/Training Program
DX: Z20.822 Contact with and (suspected) exposure to COVID-19 (principal); Z01.818 Encounter for other preprocedural examination
CPT/HCPCS: 87635

== ENCOUNTER 2021-10-18 04:03 | Outpatient (CLI) | payer OTHER, SELFPAY ==
[2021-10-18 08:42] LABS: HCT 45.2 % (40.0-50.0); HGB 15.3 g/dL (13.5-17.5); MCH 30.1 pg (27.0-33.0); MCHC 33.8 % (32.0-36.0); MCV 88.8 fL (80-95); MPV 9.3 fL (8.0-11.0); Platelet Count 246 10^3/uL (130-400); RBC 5.09 10^6/uL (4.36-5.78); RDW 12.4 % (11.8-14.1); WBC 7.09 10^3/uL (4.4-10.8)
[2021-10-18 09:25] LABS: Anion Gap 10.4 mmol/L (3-11); BUN 17 mg/dL (7-18); CO2 26.6 mmol/L (21.0-32.0); Calcium 9.1 mg/dL (8.5-10.1); Chloride 100 mmol/L (98-107); Glucose 104 mg/dL (74-106); Potassium 4.3 mmol/L (3.5-5.1); Sodium 137 mmol/L (136-145)
== END 2021-10-18 04:04 | disposition home or self-care (01) ==
LOC: LBO 04:03
PROVIDERS: PCP Family Medicine; Visit Provider Student in an Organized Health Care Education/Training Program
DX: M16.11 Unilateral primary osteoarthritis, right hip (principal); Z01.812 Encounter for preprocedural laboratory examination
CPT/HCPCS: 36415; 80048; 85027; 86850; 86900; 86901

== ENCOUNTER 2021-10-19 06:04 | Day surgery (SDC) | payer OTHER, SELFPAY ==
[2021-10-19] VITALS (15 sets, daily range): BP systolic 81–133; BP diastolic 40–92; PULSE 54–73; RESP 13–24; TEMP 36.1–36.7; O2SAT 96–99; BMI 29.5
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
[2021-10-19] MEDS: Lactated Ringers 1,000 ML 80 ML IV (06:37)
[2021-10-19] MEDS: Acetaminophen 500 MG TAB 1000 MG PO (06:38)
[2021-10-19] MEDS: Celecoxib 200 MG CAP 400 MG PO (06:38)
--- NOTE | 2021-10-19 06:41 | W.PM.DSUDISC ---
Discharge Plan Disposition Patient Disposition: HOME Condition: Stable Discharge Details Reason For Visit: right total hip replacement and left hip injection Attending Provider: Gabriel Carias Primary Care Provider: Alex Jesus Home Meds and New Rx's Prescriptions: New celecoxib [Celebrex] 200 mg capsule 200 mg PO BID Qty: 60 RF: 0 aspirin 81 mg tablet,delayed release (DR/EC) 81 mg PO BID Qty: 60 RF: 0 pantoprazole [Protonix] 40 mg tablet,delayed release (DR/EC) 40 mg PO DAILY Qty: 30 RF: 0 acetaminophen 500 mg capsule 1,000 mg PO Q8H PRN PRNQty: 90 RF: 0 oxycodone 5 mg tablet 5 mg PO Q4H PRNQty: 18 RF: 0 Continued simvastatin 10 mg tablet 10 mg PO DAILY RF: 0 tamsulosin [Flomax] 0.4 mg capsule 0.4 mg PO DAILY RF: 0 lisinopril 10 mg tablet 5 mg PO DAILY RF: 0 valacyclovir 500 mg tablet 500 mg PO BID PRNRF: 0 acetaminophen 500 mg tablet 1,000 mg PO Q8H PRN (Reason: pain) Qty: 60 RF: 3 Discontinued aspirin [Aspir-81] 81 MG tablet,delayed release (DR/EC) 81 mg PO DAILY RF: 0 ibuprofen 600 mg tablet 600 mg PO TID PRNQty: 60 RF: 3 Discharge Instructions Additional Instructions: Total Hip Discharge Instructions Activity: The most important activity is to walk. You should try to take short walks a few times a day. You have no restrictions on movement or positioning, but do not try to force what you do. You will find some stiffness and weakness with hip flexion (lifting your knee). Do not try to strengthen this too early, continue to practice walking and stairs and this will come. - Outpatient physical therapy can be helpful to help return you to a normal gait and improve your flexibility and strength. This can start around 2 weeks. For some patients, it?s not necessary. Usually this is determined at the time of discharge or at the first post-operative visit. - You should wear the MEKHI hose on both legs for 2 weeks. Dressing: Keep the surgical dressing in place for at least one week. After the first week it may be removed and replace with light gauze and tape or nothing. It may get wet after 3 days but avoid soaking the dressing. If it gets wet, just lightly pat dry. It is important to always keep some gauze between skin folds, especially when you are sitting. Spend some time with the wound exposed when you are lying flat as the incision does wrinkle onto itself. Medications: - You should take Tylenol and an anti-inflammatory Celebrex as your primary pain control medications. If the Celebrex is too expensive or not covered, please call the office for another alternative (Advil/Ibuprofen or Naproxen/Aleve). - You have been prescribed a stronger pain medication Oxycodone for breakthrough pain, take as needed as prescribed. - You have also been prescribed a stomach acid reduction agent Pantoprozole to help reduce stomach acid and reflux. - You will be taking Aspirin 81mg twice a day for DVT prevention unless instructed otherwise. - If you have constipation you should take Colace or Miralax (both qidf-qhe-tarrjmd). It takes most people 3-4 days to have a bowel movement. Follow-up: 2 weeks If you have any acute concerns or questions, please do not hesitate to contact the office at [phone]. You may contact Dr. Carias with any questions after hours through the hospital at [phone] or on his cell phone at [phone]. Referrals: Gabriel Carias MD [ [facility] STAFF PHYSICIAN] - Equipment/Supplies: Walker Activity:: Activity as Tolerated Remove Dressings/Wound Care:: Do Not Remove Shower/Bathe:: 72 hours Diet:: As Tolerated Discharge Orders Discharge Orders: Discharge Order (Routine); Ordered 10/19/21 Ordered By: Nandini Woodard DS: Diagnosis Discharge Diagnosis (1) Arthritis of left hip: Status: Acute (2) Arthritis of right hip: Status: Chronic
[2021-10-19] MEDS: ceFAZolin 2 GM/50 ML BAG IVPB (07:38)
[2021-10-19] MEDS: Ketorolac 30 MG/ML VIAL (08:53)
[2021-10-19] MEDS: methylPREDNISolone ACETATE 80 MG/ML VIAL (08:55)
--- NOTE | 2021-10-19 08:55 | DI.RAD_ITS ---
Exam(s) XR HIP RT IN OR EXAM: XR HIP RT IN OR CLINICAL HISTORY: ARTHRITIS RIGHT HIP TECHNIQUE: 2D and realtime digital imaging was performed. COMPARISON: No exams were available for comparison FINDINGS: C-arm fluoroscopy was utilized by Dr. Carias during placement of right hip prosthesis. Hard copies show acetabular and femoral components in good position. IMPRESSION: RADIATION DOSE DELIVERED: winter Gupta=8.04 mGy
[2021-10-19] MEDS: Bupivacaine 0.25% Pres-Free 30 ML VIAL (08:57)
--- NOTE | 2021-10-19 11:22 | IN_ITS ---
Date of service: 10/19/21 Time of Service: 11:22 PT Notes Visit Reasons: right total hip replacement and left hip injection Physical Therapy Inpatient Initial Evaluation Date: 10/19/2021 Referring Doctor: DAVID Ford PT Orders: PT CONSULT: Status post Ortho surgery Precautions: Fall. Standard. WBAT on the right LE with AD. Patient Profile/Admitting Diagnosis: Rudy is a 55-year-old male with arthritis of the right hip and is status post right anterior total hip arthroplasty on postoperative day 0. PMHX: Medical History (Updated 10/05/21 @ 13:20 by Amanda Metcalf) BMI 29.0-29.9,adult Surgical History (Updated 10/05/21 @ 13:20 by Amanda Metcalf) Left carpal tunnel syndrome s/p ECTR 10/22/2019 Right carpal tunnel syndrome s/p ECTR 10/18/2019 Status post colonoscopy Social History/Home Situation: Lives with , who is a nurse here at [facility], in a private home with 2 steps to enter without rails. Independent with all aspects of ADLs prior to surgery. Has a flight of steps with no rails to the second floor of the house, patient clarifies that he can hold onto [place] on both sides for support. No falls in the past 12 months. Equipment Owned/DME: Bilateral axillary crutches Subjective: Agreeable to PT consult. Denies headache, chest pain, and lightheadedness throughout session. Objective: General Observation: Supine in bed. Mepilex Ag over surgical incision. TEDS on B legs. Mental Status: Alert and oriented as to person, place, time, and purpose. Able to pay attention, focus, and respond appropriately. Pain: 4-5/10 in right hip Vital Signs: BP 127/80 7 mmHg ROM: Right Lower Extremity: Hip flexion WFL. Hip abduction WFL. Knee flexion WFL. Ankle dorsiflexion WFL. Ankle plantarflexion WFL. Left Lower Extremity: Hip flexion WFL. Hip abduction WFL. Knee flexion WFL. Ankle dorsiflexion WFL. Ankle plantarflexion WFL. Strength: Right Lower Extremity: Hip flexors 4/5. Hip abductors 4/5. Knee flexors 5/5. Knee extensors 4/5. Ankle dorsiflexors 5/5. Ankle plantarflexors 5/5. Left Lower Extremity: Hip flexors 5/5. Hip abductors 5/5. Knee flexors 5/5. Knee extensors 5/5. Ankle dorsiflexors 5/5. Ankle plantarflexors 5/5. Bed Mobility/Transfers: Supine to sit standby assist Sit to supine standby assist Stand to sit with contact-guard assist with minimal cues for safe/correct technique Bed to reclining chair with contact-guard assist with minimal cues for safe/c orrect technique Gait: Instructed patient with level surface ambulation of 100 feet requiring contact-guard assist. Minimal verbal cues given for safe and correct three- point gait pattern using bilateral axillary crutches. Denies headache, chest pain, and lightheadedness throughout activity. No LOB. No SOB. No increase in pain reported. Stairs: Facilitated stair negotiation of 6 x 4 inch steps and 4 x 6 inch steps while using bilateral axillary crutches with step-to gait pattern requiring contact-guard assist. No increase in pain reported. Balance: Static Sitting: Normal Dynamic Sitting: Normal Static Standing: Fair Dynamic Standing: Fair Special Tests: Mobility Limitations Standardized [facility] 6 clicks Basic Mobility Inpatient Short Form: Raw Score: 23 CMS Score: 11% deficit Informed Consent/Education: Patient instructed in purpose of PT consult. Packet containing exercise protocol has been given to patient. Education and training on initial set of exercises that can be done at home have been completed with patient. Assessment: Patient requires the use of bilateral axillary crutches to reduce fall risk and maximize independence. He will have the support of nurse at home as he recovers. Patient presents with clinical signs and symptoms consistent with current/admitting diagnoses that have resulted to mobility limitations, gait instability, and overall ADL decline as demonstrated by the following impairment level findings: 1. Decreased strength to right hip major muscle groups 2. Impaired standing balance 3. Impaired activity tolerance Impairments are contributing to the following functional limitations: 1. Difficulty with ambulation without assistive device and physical assistance 2. Increased completion time for mobility ADL performance 3. Increased risk for falls 4. Difficulty with managing steps alone safely Patient is assessed as a 59001 moderate complexity based on the following: History: 55-year-old male with past medical history as indicated above Examination: Demonstrable impairment in strength, balance, and mobility level with underlying impairments and functional limitations as exhibited above as well as deficit score of 11% utilizing the [facility] Mobility Inpatient Short Form Presentation: Evolving Decision Makin moderate complexity Goals: N/A. PT evaluation and 1-2 treatment sessions only for functional mobility training using recommended AD and for HEP instruction. Plan of Care/Treatment Plan: N/A. PT evaluation and 1-2 treatment session only for functional mobility training using recommended AD and for HEP instruction. DISCHARGE RECOMMENDATIONS: [] Home with no services [] [] Home with services [specify] [X] Home with outpatient PT. Home when medically cleared by orthopedic surgeon. Will benefit from outpatient PT services to facilitate return to independent community ambulation without an assistive device. [] SNF for continued rehabilitation [] [] Daytime Babysitter Care [] [] SNF versus LTC based on ability to participate and progress [] TREATMENT CODE/TIME: 73306 x 25 minutes, 73176 x 24 minutes beginning at 11:22 AM. Thank you for the opportunity to participate in the care of this patient. Sandra Peña PT, DPT, CLT [facility] [place], [place]
[2021-10-19] MEDS: oxyCODONE 5 MG TAB PO (12:28)
--- NOTE | 2021-10-19 12:34 | W.ANESPOSTOP ---
Postoperative Evaluation Date, Time and Location Date Performed: 10/19/21 Time Performed: 11:35 Patient Location: Day Surgery Unit Vital Signs Most Recent Imported Vital Signs: Most Recent Vital Signs Temp Pulse Resp BP Pulse Ox 36.5 C 55 L 16 127/87 99 10/19/21 10:48 10/19/21 11:32 10/19/21 11:32 10/19/21 11:32 10/19/21 11:32 Pain Score Most Recent Pain Score: Most Recent Pain Score Pain Level 3 10/19/21 11:32 Assessment Mental Status: Awake (Alert & Oriented to Patient Baseline) Airway and Respiratory Function: Patent airway with normal (patient baseline) respiratory exam Cardiovascular Function: Hemodynamically Stable Hydration Status: Adequately Hydrated Nausea & Vomiting: No Nausea or Vomiting Pain: Pain is tolerable per patient Peripheral Nerve Block: Patient did not receive a nerve block
--- NOTE | 2021-10-19 18:45 | W.PM.OP ---
Date of service: 10/19/21 Time of Service: 09:08 Operative Note Operative Note DATE OF PROCEDURE: 10/19/21 PRE-OP DIAGNOSIS: Right Hip Osteoarthritis, Left Hip Osteoarthritis POST-OP DIAGNOSIS: same PROCEDURE: Right Anterior Total Hip Arthroplasty with Intraoperative Navigation, Left Hip Injection with Fluoroscopic Guidance SURGEON: Gabriel Carias [employer] MACHINE OPERATOR: Nandini Woodard ANESTHESIA TYPE: Spinal Refer to Anesthesia Record ESTIMATED BLOOD LOSS: 500 PATHOLOGY: none sent TOURNIQUET TIME: 0 COMPLICATIONS: None Patient was transported to: PACU Patient's condition: stable Implants: 1. Depuy Ronan Acetabular Component, 56mm 2. Depuy Acetabular Liner, [id number] 3. Depuy Corail Standard Collared Femoral Stem, Size 12 4. Depuy Altrx Ceramic Femoral Head, Size 36+1.5mm Indications: I have seen David in clinic for symptoms of hip arthritis, confirmed with radiographic findings. He has exhausted nonoperative methods and was having significant limitations in daily function and desired better function and less pain. I discussed the technical details of a hip replacement. I explained the risks of the procedure to include, but not limited to, bleeding, infection, pain, stiffness, fracture, damage to nerves and vessels, damage to muscles and tendons, loosening, instability, leg length inequality, need for repeat procedure, blood clot and cardiopulmonary demise. Despite these risks, David elected to proceed. Findings: There was significant signs of arthritis throughout the hip. Procedure Description: David was greeted in the preoperative holding area where the correct side was identified and marked. The consent was reviewed with the patient and signed. The history and physical was updated. All questions were answered. He was taken back to the operating room. A spinal anesthestic was then administered. The feet were wrapped with cast padding and Coban and then placed into the boot liners and then into the boots. Care was taken to protect the skin and make sure the heels were fully down and the boots were stable. The patient was then positioned onto the HANA table. Both legs were held in a neutral position. SCDs were applied. The patient was then slid down onto a peroneal post. Prophylactic antibiotics in the form of Cefazolin were administered. 1g of Tranxemic Acid was given intravenously within 30 minutes of incision. A timeout to confirm correct identity, side and site, procedure, allergies, anesthesia, and medical concerns was performed. The left hip injection was performed first. The left hip was prepped with ChloraPrep. Using fluoroscopic guidance the starting point for the left hip injection was identified and a 22-gauge spinal needle was utilized from an anterolateral approach to enter the hip. The needle tip was felt the rest onto the bone and this is confirmed to be in the appropriate position on the x-ray. I then injected 5 cc of 0.5% bupivacaine along with 80 mg of Depo-Medrol. A Band-Aid was applied. The right leg was then prepped with Chloraprep and draped in a standard fashion. A second prep with Chloraprep was performed prior to placement of a shower-curtain type drape with Iodine impregnated skin protection. An obliquely oriented incision was made starting lateral to the ASIS and running distal over the Tensor Fascia Shelly (TFL) muscle belly toward the fibular head, approximately 10cm. The skin and soft tissue was dissected sharply, through Gogo?s fascia, and to the fascia of the TFL. With the fascia and superior border of the IT band identified, the fascia was incised with a new knife just above any perforators from the IT band. The TFL muscle belly was bluntly dissected away from the fascia and moved laterally. The fat between TFL and rectus was identified to ensure the dissection was not within the TFL. Blunt dissection created space between abductors and the capsule and retractor was placed over the lateral femoral neck. The fibers of the rectus femoris tendon were identified and these were freed from the anterior capsule. A second cobra retractor was placed around the medial femoral neck. The TFL was further retracted laterally to show the deep fascia. Careful dissection through this layer identified three main crossing vessels of the lateral femoral circumflex. These were cauterized in multiple locations and then cut without any noticeable bleeding. The TFL was further released bluntly from the deep fascia to expose anterior hip capsule and fat The Mike orthopaedic retractor was then placed beneath the TFL and against sartorius and medial soft tissues to protect and retract the soft tissues. A T-capsulotomy was then performed starting at the superior lateral acetabulum and moving distally to the intertrochanteric ridge. These capsular flaps were tagged with a No. 1 Ethibond and elevated from within. The capsular flaps were released to the shoulder of the lateral neck and to the lesser trochanter to give excellent visualization of the proximal femur. A neck osteotomy was performed using an oscillating saw based on preoperative templates. This cut started in the shoulder and of the lateral neck and exited medially. The saw was at all times directed medially to avoid injury to the greater trochanter. Gross traction was applied to the leg and the osteotomy opened. The femoral head was removed with a corkscrew, making sure to protect the TFL on its exit. Traction was released after head removal. This was measured on the back table to determine the starting reamer size. Portions of the rectus obscuring visualization were minimally elevated off the superior acetabulum. An anterior retractor was placed over the anterior wall between capsule and labrum and attached to the Gripper retraction system. The femur was rotated to 90 degrees and medial capsule was fully released until the lesser trochanter was palpable and visible; the femur was returned to 30 degrees. A posterior retractor was placed similarly between capsule and labrum. This provided excellent visualization. The contents of the cotyloid fossa were removed with electrocautery and the labrum was removed with a knife. There was a notable floor osteophyte. Acetabular reaming began with a 52mm reamer. This first reaming was directed anterior to posterior and medial to get down to the true floor. This was inspected and reamed until the true floor was reached. The anterior retractor was then released and entry and exit was provided by traction on the capsular flaps. I then reamed sequentially up to a 56mm reamer where good fit was obtained. The larger reamers were oriented based on anatomical reference of the anterior and lateral sutherland to ensure proper abduction and anteversion. Positioning and size was confirmed with the fluoroscopy. A 56mm Depuy Ronan acetabular component was selected. The acetabulum was reamed around the periphery with the selected acetabular size to prevent a rim fit. The deep tissues were irrigated. The acetabular component was then impacted in a position of about 40-45 degrees of abduction and 15-20 degrees of anteversion, using the patient?s anatomy as the ultimate landmark. Fluoroscopy was used to confirm this. There was excellent field irrigation worker of the acetabular component and the inserting handle was removed. The acetabular liner, Depuy [id number] polyethylene liner, was inserted and lined up with the tines of the acetabular component. There was no soft tissue interposition. The liner was then impacted into position and confirmed to be well-seated. A portion of the ilana-articular cocktail was then injected around the acetabulum into the capsule and periosteum. This cocktail consisted of 50cc of 0.25% Bupivicaine and 20cc of Exparel and 30mg of Ketorolac. The leg was rotated to 120 degrees. Any remaining medial capsule was released until the lesser trochanter was easily palpable. A retractor was placed medially. The lateral capsule was further released into the shoulder to allow access to the greater trochanter. A Lay retractor was placed over the greater trochanter which allowed the trochanter to flip in front of the capsule for excellent exposure. The leg was brought down into maximal extension and 20 degrees of adduction while ensuring there was no impingement on the acetabulum. Any remnant capsule within the trochanter was released. Piriformis and obturator externis were identified and protected. There was excellent access to the proximal femur. The lateral neck remnant was removed with a rongeur. A blunt canal probe was used to identify the canal and trajectory for later broaching. A box osteotome initiated the broach course. A small curved rasp and a curved curette were used to work laterally. Broaching then began with a size 8 Corail broach. This was inserted manually around the trochanter and into the canal before mallet blows. The broach was seated to a few millimeters below the cut level based on the neck cut and the preoperative template. Sequential broaching was continued with the [employer] pneumatic broaching device until a tight fit was obtained with good rotational control of the femur. A trial standard neck was inserted along with a +1.5mm trial head. The leg was brought out of extension and adduction and then reduced with traction and internal rotation. The leg was stable anteriorly in a position of 30 degrees of extension and 90 degrees of external rotation. Fluoroscopy was used to ensure there was no fracture and the stem was seated well. Leg lengths were checked with an AP pelvis and pelvic reference points. [employer] navigation system was used to confirm appropriate positioning and leg length and offset. Once content with the desired offset and leg lengths, the leg was brought back into extension, external rotation and adduction. The periosteum and surrounding tissue was injected with remaining portion of the ilana-articular cocktail. The proximal femur was irrigated as well as the deep tissues. The Planet Prest[employer] Corail standard collared stem, size 12, was then manually inserted into the proximal femur making sure to control rotation. It was then malleted into position with light blows, giving breaks to allow bone expansion and decrease risk of fracture. The selected Depuy Altrx Ceramic Head, size 36+1.5mm, was then placed onto the clean and dry trunnion and secured with impaction onto the tapered fit. The leg was brought back out of extension and adduction and reduced with traction and internal rotation. Stability was confirmed with no shuck at 90 degrees of external rotation and 30 degrees of extension. No impingement through range of motion arc. Final x-ray images were obtained with fluoroscopy to confirm adequate positioning and no intraoperative fracture. The deep tissues were thoroughly irrigated with Irrisept chlorhexadine solution. The capsule was then reapproximated with the previously placed Ethibond sutures. The TFL fascia was finally closed with a No. 2 Stratafix, barbed suture. Deep tissues were then reapproximated with 0 Vicryl and a running 2-0 Vicryl. The skin was closed with a running 4-0 Monocryl in a subcuticular fashion. This was reinforced with skin glue. A Mepilex silver dressing was applied. At the end of the case, all counts were correct. David was transferred to the hospital bed without difficulty and suffering no apparent complication. David has a good prognosis. Physical therapy will start today and without restrictions, weight-bearing as tolerated. Aspirin 81mg BID will be used for DVT prophylaxis.
== END 2021-10-19 13:15 | disposition home or self-care (01) ==
PROVIDERS: PCP Family Medicine; Visit Provider Student in an Organized Health Care Education/Training Program
PROC: (CPT 27130; principal; 2021-10-19 07:30)
DX: M16.0 Bilateral primary osteoarthritis of hip (principal); I10 Essential (primary) hypertension; G47.33 Obstructive sleep apnea (adult) (pediatric); E78.5 Hyperlipidemia, unspecified
CPT/HCPCS: 20610; 27130; 20985; 97162; 97530; 73501; J0690; J1040; J1100; J1885; J2250; J2405; J2704

== ENCOUNTER 2021-11-01 11:02 | Outpatient (CLI) | payer OTHER, SELFPAY ==
--- NOTE | 2021-11-01 08:15 | DI.RAD_ITS ---
Exam(s) XR HIP RT COMPLETE AP PELVIS EXAM: XR HIP RT COMPLETE AP PELVIS INDICATION: 1ST POST OP RIGHT TONY. COMPARISON: XR HIP RT IN OR from 10/19/2021 TECHNIQUE: 2D digital imaging was performed. FINDINGS: There has been no change in the alignment of the right total hip prosthesis or appearance of the surr ounding bone. No new abnormalities. DATA REPOSITORY: RADIATION DOSE DELIVERED:
== END 2021-11-01 11:03 | disposition home or self-care (01) ==
LOC: DIORS 11:02
PROVIDERS: PCP Family Medicine; Referring Provider Family Medicine; Visit Provider Physician Assistant
DX: Z96.641 Presence of right artificial hip joint (principal); Z47.1 Aftercare following joint replacement surgery
CPT/HCPCS: 73502

== ENCOUNTER 2021-11-11 15:14 | Outpatient (REF) | payer OTHER, SELFPAY ==
[2021-11-11 15:20] LABS: ALT 47 U/L (16-63); AST 20 U/L (15-37); Calculated LDL 128 mg/dL (<100); Cholesterol 206 mg/dL (<200); HDL Cholesterol 67 mg/dL (40-60); Triglyceride 56 mg/dL (<150)
== END 2021-11-11 15:15 | disposition home or self-care (01) ==
LOC: NCHCN 15:14
PROVIDERS: PCP Family Medicine; Visit Provider Family Medicine
DX: I10 Essential (primary) hypertension (principal); E78.5 Hyperlipidemia, unspecified
CPT/HCPCS: 80061; 84450; 84460

== ENCOUNTER 2022-04-13 02:02 | Outpatient (CLI) | payer OTHER, SELFPAY ==
[2022-04-13 12:12] LABS: Source Nasal/Nares
[2022-04-13 15:47] LABS: COVID-19 PCR Negative (Negative)
== END 2022-04-13 02:03 | disposition home or self-care (01) ==
LOC: LBO 02:02
PROVIDERS: PCP Family Medicine; Visit Provider Podiatrist
DX: Z20.822 Contact with and (suspected) exposure to COVID-19 (principal); Z01.818 Encounter for other preprocedural examination
CPT/HCPCS: 87635

== ENCOUNTER 2022-04-15 06:17 | Day surgery (SDC) | payer OTHER, SELFPAY ==
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
[2022-04-15 06:20] VITALS: BP 137/93; PULSE 60; RESP 16; TEMP 36; O2SAT 98
[2022-04-15 06:34] VITALS: BMI 29.8
[2022-04-15] MEDS: Lactated Ringers 1,000 ML 80 ML IV (06:55)
[2022-04-15] MEDS: ceFAZolin 2 GM/50 ML BAG IVPB (07:31)
[2022-04-15] MEDS: Lidocaine 1% Pres-Free 30 ML VIAL (07:39)
[2022-04-15] MEDS: Bupivacaine 0.5% Pres-Free 30 ML VIAL (07:39)
[2022-04-15] MEDS: Lidocaine 1% Multi-Dose W/EPI 1/100,000 50 ML VIAL (07:49)
[2022-04-15] MEDS: Dexamethasone 4 MG/ML VIAL (09:21)
--- NOTE | 2022-04-15 09:32 | ROE_ITS ---
Date of service: 04/15/22 Time of Service: 09:33 Operative Note Operative Note DATE OF PROCEDURE: 04/15/22 PRE-OP DIAGNOSIS: Hallux limitus, hammertoes 2 and 4, midtarsal exostosis all to the left foot PROCEDURE: Cheilectomy, midtarsal dorsal exostectomy, arthroplasty digits 2 and 4 with point 062 K wire fixation SURGEON: Kaz Almanza Refer to Anesthesia Record ESTIMATED BLOOD LOSS: 1 TOURNIQUET TIME: 53 COMPLICATIONS: None Patient was transported to: same day Patient's condition: stable Indications: 56-year-old male with multiple pathologic issues affecting his left foot consisting hallux limitus deformity, hammertoes digits 2 and 4 with a mucoid cyst afflicting the fourth digit, midtarsal dorsal exostosis. All conditions are exacerbated with shoe gear and ambulatory activities. Nonoperative treatments have failed to provide lasting relief of symptoms. He understands risks and potential complications of surgery pertaining to pain, scarring, infection, nerve injury, stiffness of the joints, persistent swelling, ongoing discomfort requiring revisional procedures. All questions have been answered in detail. No promises made to the final outcome of surgery. Informed consent has been obtained. Procedure Description: David was brought to the operative suite placed in supine position with the left foot prepped and draped in the usual sterile podiatric fashion. Timeout was performed for safe surgery. IV general was achieved and a ankle block performed to left ankle consisting of 30 cc 50: 50 mixture 1% lidocaine plain, 0.5% Marcaine plain. An additional 10 cc of lidocaine with epinephrine was then infused in a v fashion around the midtarsal dorsal exostosis. Attention was directed to the mid tarsal dorsal exostosis where a 3 cm incision was placed directly over and slightly lateral to the formation this was just over the second metatarsocuneiform joint region. With a #10 scalpel the skin incision was made with controlled depth. 15 scalpel was then used to further dissect as well as Metzenbaum scissors vital structures were identified moved medially and laterally so to avoid injury. Dissection was carried down to the periosteum the mid tarsal dorsal exostosis was easily identified incision was placed directly over the exostosis and the periosteum medially and laterally with osteotome and mallet the hyperostosis was resected I was then easily able to identify the second metatarsocuneiform joint additional exostosis formations noted laterally heading over towards the third met cuneiform and this was resected as well all rough and bony edges were then hand rasp and saucerized finger palpation revealed adequate resection of bone copious irrigation with normal saline performed the periosteum was repaired with simple interrupted suture 3-0 Vicryl deep layers were repaired with 3-0 Vicryl subcutaneous layer repaired with 4-0 Vicryl simple interrupted suture and the skin was closed with continuous running suture 4-0 Monocryl attention was now directed to the bunion joint and Esmarch was applied the tourniquet was inflated at the ankle which was well-padded to 250 mmHg. A 4 cm incision was made directly over the dorsal medial aspect of the first MPJ parallel to the EHL tendon. The incision was deepened in controlled depth fashion hemostasis acquired with electrocautery as needed. Dissection was carried down to the joint capsule. A midline dorsal capsulotomy was performed the capsule was reflected medially and laterally. Degenerative changes with hyperostosis was appreciated coming from the medial dorsal and lateral aspect of the first metatarsal and dorsal aspect of the base of the proximal phalanx the articular surfaces appeared to be generally viable and relatively healthy. With power instrument instrumentation the medial lateral and dorsal aspects of the first metatarsal head were all resected with a rongeur the base of the proximal phalanx was remodeled power instrumentation with the bur was then used to round and smoothed and all rough and bony edges copious irrigation was performed finger palpation revealed good resection of bone he had smoother range of motion at the first MPJ without dorsal restriction the joint capsule was repaired with simple interrupted suture 3-0 Vicryl subcutaneous layer repaired with 3-0 Vicryl and 4-0 Vicryl the subcuticular layer was then repaired with continuous running suture of 4-0 Monocryl attention was now directed to the second and fourth left toes Transverse incision was placed over the DIPJ of the second toe in a straight horizontal incision placed over the DIPJ of the fourth toe skin wedge was removed from the second toe the incision deepened over the fourth toe dissection was carried down to the DIPJ extensor tendon and joint capsule with a fresh 15 scalpel a capsulotomy was performed and the distal interphalangeal joint entered the medial lateral collaterals were released the extensor tendons were dissected and lifted dorsally over the head of the middle phalanx the fourth toe was performed consecutively identically. With double-action bone cutting forcep the head of the middle phalanx was then resected the second toe was slightly modified as the bone was trapezoidal and a angular piece of bone was resected so as to correct that deformity all rough and bony edges and the second and fourth toes were rasped smooth and copious irrigation performed the digit was subsequently stabilized in retrograde fashion utilizing a 0.062 K wire. The extensor tendons were then repaired end-to-end with 3-0 Vicryl and the skin coapted with simple interrupted suture of 4-0 nylon 4 mg of dexamethasone phosphate was then infused about the midtarsal and bunion incision Mastisol applied to the metatarsal and bunion incisions half-inch Steri-Strips applied Xeroform was applied to everything and gauze fluff compression dressings applied the tourniquet was released at 53 minutes and vascularity returned to all toes immediately sharp and sponge counts were correct David left the OR with vital signs stable vascular status intact he will be followed by myself in the office next week Dictated with Hardik naturally speaking not reviewed for project management consultant errors
[2022-04-15 09:35] VITALS: BP 107/65; PULSE 73; RESP 14; TEMP 36; O2SAT 96
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
[2022-04-15 10:10] VITALS: BP 123/81; PULSE 56; RESP 16; TEMP 36.1; O2SAT 98
--- NOTE | 2022-04-15 10:23 | W.ANESPOSTOP ---
Postoperative Evaluation Date, Time and Location Date Performed: 04/15/22 Time Performed: 10:00 Patient Location: Day Surgery Unit Vital Signs Most Recent Imported Vital Signs: Most Recent Vital Signs Temp Pulse Resp BP Pulse Ox 36.0 C L 73 14 107/65 96 04/15/22 09:35 04/15/22 09:35 04/15/22 09:35 04/15/22 09:35 04/15/22 09:35 Pain Score Most Recent Pain Score: Most Recent Pain Score Pain Level 0 04/15/22 09:35 Assessment Mental Status: Awake (Alert & Oriented to Patient Baseline) Airway and Respiratory Function: Patent airway with normal (patient baseline) respiratory exam Cardiovascular Function: Hemodynamically Stable Hydration Status: Adequately Hydrated Nausea & Vomiting: No Nausea or Vomiting Pain: Pt. Denies Any Pain Peripheral Nerve Block: Patient did not receive a nerve block
== END 2022-04-15 11:05 | disposition home or self-care (01) ==
PROVIDERS: PCP Family Medicine; Visit Provider Podiatrist
PROC: (CPT 28289; principal; 2022-04-15 07:30)
DX: M21.612 Bunion of left foot (principal)
CPT/HCPCS: 28285 ×2; 28299; 28104; J0690; J1100; J2405

== ENCOUNTER 2022-11-14 09:15 | Outpatient (REF) | payer OTHER, SELFPAY ==
[2022-11-14 15:55] LABS: Anion Gap 10.2 mmol/L (3-11); BUN 13 mg/dL (7-18); CO2 25.8 mmol/L (21.0-32.0); Calcium 9.2 mg/dL (8.5-10.1); Chloride 103 mmol/L (98-107); Estimated GFR 87.24 (mL/min/1.73m2); Glucose 96 mg/dL (74-106); Potassium 4.5 mmol/L (3.5-5.1); Sodium 139 mmol/L (136-145)
[2022-11-14 16:15] LABS: Calculated LDL 117 mg/dL (<100); Cholesterol 214 mg/dL (<200); HDL Cholesterol 71 mg/dL (40-60); Triglyceride 130 mg/dL (<150)
== END 2022-11-14 09:16 | disposition home or self-care (01) ==
LOC: NCHCN 09:15
PROVIDERS: PCP Family Medicine; Visit Provider Family Medicine
DX: Z00.00 Encounter for general adult medical examination without abnormal findings (principal); I10 Essential (primary) hypertension; E78.5 Hyperlipidemia, unspecified
CPT/HCPCS: 80048; 80061

== ENCOUNTER 2022-11-21 12:03 | Outpatient (REF) | payer OTHER, SELFPAY ==
[2022-11-22 10:14] LABS: PSA, Screening 1.9 ng/mL (<=3.5)
== END 2022-11-21 12:04 | disposition home or self-care (01) ==
LOC: NCHCN 12:03
PROVIDERS: PCP Family Medicine; Visit Provider Family Medicine
DX: Z00.00 Encounter for general adult medical examination without abnormal findings (principal); N40.0 Benign prostatic hyperplasia without lower urinary tract symptoms; Z12.5 Encounter for screening for malignant neoplasm of prostate
CPT/HCPCS: 84153

== ENCOUNTER 2022-11-25 11:18 | Outpatient (CLI) | payer OTHER, SELFPAY ==
--- NOTE | 2022-11-25 11:00 | DI.RAD_ITS ---
Exam(s) XR HIP RT AP LAT ONLY EXAM: XR HIP RT AP LAT ONLY CLINICAL HISTORY: right TONY. TECHNIQUE: 2D digital imaging was performed. COMPARISON: CR XR HIP RT COMPLETE AP PELVIS from 11/01/2021 FINDINGS: Two views: Stable position alignment of the components of the right hip prosthesis. No fracture nor loosening e vident. IMPRESSION: Satisfactory stable appearance. DATA REPOSITORY: RADIATION DOSE DELIVERED:
== END 2022-11-25 11:19 | disposition home or self-care (01) ==
LOC: DIORS 11:19
PROVIDERS: PCP Family Medicine; Referring Provider Family Medicine; Visit Provider Physician Assistant
DX: Z96.641 Presence of right artificial hip joint (principal)
CPT/HCPCS: 73502

== ENCOUNTER 2023-04-03 09:05 | Outpatient (CLI) | payer OTHER, SELFPAY ==
--- NOTE | 2023-04-03 09:46 | DI.RAD_ITS ---
Exam(s) XR KNEE RT 4V AP,LAT,TILA,PAT EXAM: XR KNEE RT 4V AP,LAT,TILA,PAT CLINICAL HISTORY: right knee pain. TECHNIQUE: 2D digital imaging was performed. COMPARISON: No exams were available for comparison FINDINGS: Four views No evidence of acute fracture nor obvious joint effusion. There are moderate tricompartmental osteoarthritic degenerative changes. Most evident in the medial compartment where there is moderate joint space narrowing and marginal osteophytes. No obvious narro wing of the lateral compartment. Mild narrowing of the patellofemoral compartment. IMPRESSION: Degenerative changes as described above, most evident in the medial compartment. DATA REPOSITORY: RADIATION DOSE DELIVERED:
== END 2023-04-03 09:06 | disposition home or self-care (01) ==
LOC: DIORS 09:06
PROVIDERS: PCP Family Medicine; Referring Provider Family Medicine; Visit Provider Physician Assistant
DX: M17.11 Unilateral primary osteoarthritis, right knee
CPT/HCPCS: 73564

== ENCOUNTER 2023-07-16 08:52 | Emergency (ER) | payer OTHER, SELFPAY ==
[2023-07-16 08:57] VITALS: BP 135/99; PULSE 76; RESP 18; TEMP 36.8; O2SAT 97
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
[2023-07-16] MEDS: Triamcinolone 0.1% CR 15 GM TUBE TP (10:03)
[2023-07-16] MEDS: predniSONE 20 MG TAB 40 MG PO (10:04)
== END 2023-07-16 10:07 | disposition home or self-care (01) ==
PROVIDERS: Emergency Provider Registered Nurse Emergency; PCP Family Medicine
DX: R21 Rash and other nonspecific skin eruption (principal); I10 Essential (primary) hypertension
CPT/HCPCS: 99282; J7512

== ENCOUNTER 2023-11-16 10:32 | Outpatient (CLI) | payer OTHER, SELFPAY ==
[2023-11-16 09:12] LABS: HCT 42.8 % (40.0-50.0); HGB 14.2 g/dL (13.5-17.5); MCH 28.1 pg (27.0-33.0); MCHC 33.2 % (32.0-36.0); MCV 85 fL (80-95); MPV 9.2 fL (8.0-11.0); Platelet Count 277 10^3/uL (130-400); RBC 5.05 10^6/uL (4.36-5.78); RDW 13.6 % (11.8-14.1); RDW-SD 42.2 fL; WBC 5.45 10^3/uL (4.4-10.8)
[2023-11-16 09:56] LABS: ALT 45 U/L (16-63); AST 25 U/L (15-37); Albumin 4.3 g/dL (3.4-5.0); Alkaline Phosphatase 91 U/L (46-116); Anion Gap 7.5 mmol/L (3-11); BUN 13 mg/dL (7-18); Bilirubin, Total 0.8 mg/dL (0.2-1.0); CO2 29.5 mmol/L (21.0-32.0); CREATININE 0.9 mg/dL (0.70-1.30); Calcium 9.3 mg/dL (8.5-10.1); Calculated LDL 123 mg/dL (<100); Chloride 101 mmol/L (98-107); Cholesterol 202 mg/dL (<200); Estimated GFR 98.38 (mL/min/1.73m2); Glucose 95 mg/dL (74-106); HDL Cholesterol 70 mg/dL (40-60); Potassium 4.6 mmol/L (3.5-5.1); Sodium 138 mmol/L (136-145); Total Protein 8.4 g/dL (6.4-8.2); Triglyceride 46 mg/dL (<150)
[2023-11-16 19:19] LABS: PSA, Screening 2.2 ng/mL (<=3.5)
== END 2023-11-16 10:33 | disposition home or self-care (01) ==
LOC: LBO 10:42
PROVIDERS: PCP Family Medicine; Visit Provider Family Medicine
DX: I10 Essential (primary) hypertension (principal); E78.5 Hyperlipidemia, unspecified; N40.0 Benign prostatic hyperplasia without lower urinary tract symptoms
CPT/HCPCS: 36415; 80053; 80061; 84153; 85027

== ENCOUNTER 2024-01-16 11:57 | Day surgery (SDC) | payer OTHER, SELFPAY ==
--- NOTE | 2024-01-16 09:39 | W.PM.DSUDISC ---
Date of service: 01/16/24 Time of Service: 09:39 Discharge Plan Disposition Patient Disposition: Home Condition: Good Discharge Details Reason For Visit: Excision Cyst Finger Attending Provider: Gabriel Carias Primary Care Provider: Alex Jesus Home Meds and New Rx's Prescriptions: New acetaminophen 500 mg tablet 1,000 mg PO TID Qty: 90 0RF ibuprofen 600 mg tablet 600 mg PO TID PRN (Reason: pain) Qty: 90 0RF Continued tamsulosin [Flomax] 0.4 mg capsule 0.4 mg PO DAILY atorvastatin 20 mg tablet 20 mg PO DAILY lisinopril 10 mg tablet 5 mg PO DAILY valacyclovir 500 mg tablet 500 mg PO BID PRN Discharge Instructions Additional Instructions: Court's Discharge Instructions Activity: You may use your hand for light activity as tolerated for the first week. Be careful not to do too much too fast. Dressing/Cast: You may remove the dressing after two days and get the incision wet at that time. You may place a band-aid over the incision if desired. Medications: - You should take Tylenol and Ibuprofen for baseline pain control. - You may apply ice over the finger. Follow-up: 7-10 days Referrals: Gabriel Carias MD [ [facility] STAFF PHYSICIAN] - Activity:: Activity as Tolerated Remove Dressings/Wound Care:: 48 hours Shower/Bathe:: 48 hours Diet:: As Tolerated Discharge Orders Discharge Orders: Discharge Order (Routine); Ordered 01/16/24 Ordered By: William Perez DS: Diagnosis Discharge Diagnosis (1) Digital mucous cyst of finger of right hand: Status: Acute
[2024-01-16 12:26] VITALS: BP 139/81; PULSE 77; RESP 16; TEMP 36.1; O2SAT 97
[2024-01-16] MEDS: Lidocaine 1% Multi-Dose W/EPI 1/100,000 50 ML VIAL (13:44)
[2024-01-16] MEDS: Sodium Bicarbonate 50 MEQ/50 ML VIAL (13:44)
[2024-01-16 14:03] VITALS: BP 133/81; PULSE 68; RESP 16; TEMP 36.7; O2SAT 97
--- NOTE | 2024-01-16 14:09 | W.PM.OP ---
Date of service: 01/16/24 Time of Service: 13:40 Operative Note Operative Note DATE OF PROCEDURE: 01/16/24 PRE-OP DIAGNOSIS: Digital Mucous Cyst - Right Middle Finger POST-OP DIAGNOSIS: same PROCEDURE: Mucous Cyst Excision - Right Middle Finger SURGEON: Gabriel Carias ANESTHESIA TYPE: Local By Surgeon Refer to Anesthesia Record ESTIMATED BLOOD LOSS: 5 PATHOLOGY: none sent COMPLICATIONS: None Patient was transported to: same day Patient's condition: stable Indications: I have seen David in clinic for symptoms of a digital mucous cyst. The mass persisted and caused pain to direct contact and with use. The diagnosis of a mucous cyst was made. The symptoms had not responded to conservative measures. I discussed cyst excision with the patient. I reviewed the risks of the procedure to include, but not limited to, bleeding, infection, pain, stiffness, recurrence, damage to nerves or vessels. Despite these risks, the patient elected to proceed. Findings: There was a cyst of the distal phalanx, arising from the DIP joint. The cyst and its capsule was removed and an arthrotomy at the cyst location performed. Procedure Description: David was greeted in the preoperative holding area where the correct side was identified and marked. The consent was reviewed with the patient and signed. All questions were answered. He was taken back to the operating room. The patient was placed into the supine position on the operating room table with the right arm on an arm board. All bony prominences were well padded. No prophylactic antibiotics were administered since this was a clean, elective hand surgical case. The right arm was then prepped with Chloraprep and draped in a standard fashion with stockinette and extremity drape. A timeout to confirm correct identity, side and site, procedure, allergies, anesthesia, and medical concerns was performed. A digital block was then performed using 1% lidocaine with epinephrine and buffered with sodium bicarbonate. This was allowed time to set up completely and was tested before proceeding with the case. A longitudinal incision was then made overlying the cyst. The skin was incised sharply. Full-thickness flaps were then elevated to expose the cyst. The cyst capsule was then removed with a rongeur and followed back towards the DIP joint. Using the rongeur and a [place] I was able to penetrate into the DIP joint creating a small arthrotomy from the origin of the mucous cyst. The finger was irrigated and once again checked to make sure that all components of the cyst were removed. The skin was then closed using a #4-0 nylon in interrupted fashion. The finger was dressed with Xeroform, 4 x 4, conform dressing. The patient tolerated the procedure well and was returned to the Same Day Surgery area in a stable condition suffering no known complication.
== END 2024-01-16 14:15 | disposition home or self-care (01) ==
LOC: SUR 11:57
PROVIDERS: PCP Family Medicine; Visit Provider Student in an Organized Health Care Education/Training Program
PROC: (CPT 26160; principal; 2024-01-16 14:30)
DX: M67.441 Ganglion, right hand (principal)
CPT/HCPCS: 26160; J2004

== ENCOUNTER 2024-02-27 09:54 | Day surgery (SDC) | payer OTHER, SELFPAY ==
[2024-02-27 10:23] VITALS: BP 126/88; PULSE 73; RESP 18; TEMP 36.2; O2SAT 97
--- NOTE | 2024-02-27 10:46 | W.PM.DSUDISC ---
Date of service: 02/27/24 Time of Service: 10:46 Discharge Plan Disposition Patient Disposition: Home Condition: Good Discharge Details Reason For Visit: Excision cyst RMF Attending Provider: Gabriel Carias Primary Care Provider: Alex Jesus Home Meds and New Rx's Prescriptions: New acetaminophen 500 mg tablet 1,000 mg PO TID Qty: 90 0RF ibuprofen 600 mg tablet 600 mg PO TID PRN (Reason: pain) Qty: 90 0RF Continued tamsulosin [Flomax] 0.4 mg capsule 0.4 mg PO DAILY atorvastatin 20 mg tablet 20 mg PO DAILY lisinopril 10 mg tablet 5 mg PO DAILY valacyclovir 500 mg tablet 500 mg PO BID PRN Discontinued acetaminophen 500 mg tablet 1,000 mg PO TID Qty: 90 0RF ibuprofen 600 mg tablet 600 mg PO TID PRN (Reason: pain) Qty: 90 0RF Discharge Instructions Additional Instructions: Finger Cyst Excision Discharge Instructions Activity: You should keep the hand elevated as much as possible for the first few days. You may use the other fingers as tolerated but avoid trying to do too much too soon. You may perform light activities with the dressing in place. Dressing/Cast: You may remove the dressing after 48 hours. At this time you may get the incision wet. You may cover with a Band-Aid if desired. Medications: - You should take Tylenol and Ibuprofen for pain control. - You may apply ice over the thumb. Follow-up: 7-10 days Referrals: Gabriel Carias MD [ [facility] STAFF PHYSICIAN] - Activity:: Activity as Tolerated Remove Dressings/Wound Care:: 48 hours Shower/Bathe:: 48 hours Diet:: As Tolerated Discharge Orders Discharge Orders: Discharge Order (Routine); Ordered 02/27/24 Ordered By: William Perez DS: Diagnosis Discharge Diagnosis (1) Ganglion cyst of finger of right hand: Status: Acute
[2024-02-27] MEDS: Lidocaine 1% Pres-Free W/EPI 1/200,000 10 ML VIAL (11:44)
[2024-02-27] MEDS: Sodium Bicarbonate 50 MEQ/50 ML VIAL (11:45)
[2024-02-27 12:07] VITALS: BP 132/85; PULSE 53; RESP 16; TEMP 36.6; O2SAT 99
--- NOTE | 2024-02-27 12:24 | W.PM.OP ---
Date of service: 02/27/24 Time of Service: 11:40 Operative Note Operative Note DATE OF PROCEDURE: 02/27/24 PRE-OP DIAGNOSIS: Recurrent Right Middle Finger Mucous Cyst POST-OP DIAGNOSIS: same PROCEDURE: Mucous Cyst Excision - Right Middle Finger SURGEON: Gabriel Carias ANESTHESIA TYPE: Local By Surgeon Refer to Anesthesia Record ESTIMATED BLOOD LOSS: 5 PATHOLOGY: none sent COMPLICATIONS: None Patient was transported to: same day Patient's condition: stable Indications: I have seen David in clinic for symptoms of a digital mucous cyst. The mass persisted and caused pain to direct contact and with use, so he underwent digital mucous cyst excision. Unfortunately, he developed a recurrence quite quickly. Therefore, I offered repeat excision of the cyst. I reviewed the risks of the procedure to include, but not limited to, bleeding, infection, pain, stiffness, recurrence, damage to nerves or vessels. Despite these risks, the patient elected to proceed. Findings: The cyst was primary in the soft tissues. I was unable to trace it back via any stock. I fully expose the area and performed aggressive debridement along with arthrotomy. Procedure Description: David was greeted in the preoperative holding area where the correct side was identified and marked. The consent was reviewed with the patient and signed. All questions were answered. David was taken back to the operating room. The patient was placed into the supine position on the operating room table with the right arm on an arm board. All bony prominences were well padded. No prophylactic antibiotics were administered since this was a clean, elective hand surgical case. The right arm was then prepped with Chloraprep and draped in a standard fashion with extremity drape. A timeout to confirm correct identity, side and site, procedure, allergies, anesthesia, and medical concerns was performed. A digital block was then performed using 1% lidocaine with epinephrine and buffered with sodium bicarbonate. This was allowed time to set up completely and was tested before proceeding with the case. A longitudinal incision was then made overlying the cyst. The skin was incised sharply. Full-thickness flaps were then elevated to expose the cyst. The cyst capsule was then removed with a rongeur. I was unable to find the cyst stalk going anywhere at this point. I did elevate the tissue overlying the extensor tendon looking ulnarly. I also followed and soft tissues radially. Capsular tissues was resected. The arthrotomy was performed. Aggressive debridement was performed. Despite this is unable to find any true start going into the joint. Excess tissue in this area and inflammatory changes was removed with a rongeur. The wound was thoroughly irrigated. The skin was then closed using a #4-0 nylon in interrupted fashion. The finger was dressed with Xeroform, 4 x 4, conform dressing. The patient tolerated the procedure well and was returned to the Same Day Surgery area in a stable condition suffering no known complication.
== END 2024-02-27 12:31 | disposition home or self-care (01) ==
PROVIDERS: PCP Family Medicine; Visit Provider Student in an Organized Health Care Education/Training Program
PROC: (CPT 26160; principal; 2024-02-27 11:45)
DX: M67.441 Ganglion, right hand (principal); I10 Essential (primary) hypertension; E78.5 Hyperlipidemia, unspecified
CPT/HCPCS: 26160; J2004

== ENCOUNTER 2024-03-13 05:02 | Outpatient (CLI) | payer OTHER, SELFPAY ==
[2024-03-13 08:40] LABS: Calculated LDL 93 mg/dL (<100); Cholesterol 179 mg/dL (<200); HDL Cholesterol 78 mg/dL (40-60); Triglyceride 44 mg/dL (<150)
== END 2024-03-13 05:03 | disposition home or self-care (01) ==
LOC: LBO 05:02
PROVIDERS: PCP Family Medicine; Visit Provider Family Medicine
DX: E78.5 Hyperlipidemia, unspecified (principal)
CPT/HCPCS: 36415; 80061

== ENCOUNTER 2024-06-17 08:22 | Day surgery (SDC) | payer OTHER, SELFPAY ==
[2024-06-17 08:39] VITALS: BP 120/90; PULSE 56; RESP 16; TEMP 36.2; O2SAT 100
[2024-06-17] MEDS: Lactated Ringers 1,000 ML 80 ML IV (08:51)
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
--- NOTE | 2024-06-17 09:37 | W.COLOREPORT ---
Date of service: 06/17/24 Time of Service: 09:37 Colonoscopy Report Procedure Description: PROCEDURES PERFORMED: 1. Colonoscopy 2. PREOPERATIVE DIAGNOSIS: Surveillance colonoscopy POSTOPERATIVE DIAGNOSIS: Grade 1 internal hemorrhoids SURGEON: Jose E Carmen MD INDICATION for procedure: The patient is a 58-year-old man due for surveillance colonoscopy. Prior colonoscopy was 10 years ago and normal. No family history of colon cancer. He has no symptoms. FINDINGS: Normal terminal ileum. No polyps were seen anywhere. There is no diverticular disease. On retroflexion the patient had mild internal hemorrhoids. He also has a couple of benign?appearing external perianal skin tags likely related to hemorrhoid disease. SURVEILLANCE interval/FOLLOW-UP: 10 years SPECIMENS: None EBL: Minimal COMPLICATIONS: None QUALITY of prep: Excellent Procedure in detail: The patient gave written consent and was in agreement with the indications, the potential risks as well as the benefits of the procedure. They were taken to the endoscopy suite and laid in the left lateral decubitus position. A timeout was performed and anesthesia was administered which was tolerated well. I started the procedure. Digital rectal and visual examination was performed and grossly within normal limits. A well-lubricated flexible colonoscope was then introduced and passed without any notable difficulty all the way to the cecum identified by the ileocecal valve and the appendiceal orifice. The terminal ileum was intubated and looked normal. The scope was then slowly withdrawn with the above-noted findings. The patient tolerated the procedure well and was taken to the PACU in hemodynamically stable condition.
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
[2024-06-17 09:39] VITALS: BMI 29.5
--- NOTE | 2024-06-17 09:47 | W.PM.DSUDISC ---
Date of service: 06/17/24 Time of Service: 09:47 Discharge Plan Disposition Patient Disposition: Home Condition: Good Discharge Details Attending Provider: Jus Carmen Primary Care Provider: Alex Jesus Home Meds and New Rx's Prescriptions: No Action tamsulosin [Flomax] 0.4 mg capsule 0.4 mg PO DAILY atorvastatin 20 mg tablet 20 mg PO DAILY lisinopril 10 mg tablet 5 mg PO DAILY valacyclovir 500 mg tablet 500 mg PO BID PRN Discharge Instructions Additional Instructions: FINDINGS: No polyps were found today. No inflammation or any other concerning findings. Repeat another colonoscopy in 10 years. Some mild hemorrhoid disease was found incidentally, this is extremely common, benign and nothing needs to be done about it. Stand Alone Forms: Colonoscopy Post Instructions Activity:: Activity as Tolerated Diet:: As Tolerated DS: Diagnosis Discharge Diagnosis (1) Colon cancer screening: Status: Acute
[2024-06-17 10:15] VITALS: BP 130/92; PULSE 64; RESP 16; TEMP 36.6; O2SAT 97
--- NOTE | 2024-06-17 10:26 | W.ANESPOSTOP ---
Postoperative Evaluation Date, Time and Location Date Performed: 06/17/24 Time Performed: 10:26 Patient Location: Day Surgery Unit Vital Signs Most Recent Imported Vital Signs: Most Recent Vital Signs Temp Pulse Resp BP Pulse Ox 36.6 C 64 16 130/92 H 97 06/17/24 10:15 06/17/24 10:15 06/17/24 10:15 06/17/24 10:15 06/17/24 10:15 Pain Score Most Recent Pain Score: Most Recent Pain Score Pain Level 0 06/17/24 08:39 Assessment Mental Status: Awake (Alert & Oriented to Patient Baseline) Airway and Respiratory Function: Patent airway with normal (patient baseline) respiratory exam Cardiovascular Function: Hemodynamically Stable Hydration Status: Adequately Hydrated Nausea & Vomiting: No Nausea or Vomiting Pain: Pt. Denies Any Pain Peripheral Nerve Block: Patient did not receive a nerve block
[2024-06-17 10:39] VITALS: BP 135/83; PULSE 55; RESP 17; TEMP 36.4; O2SAT 50
== END 2024-06-17 11:15 | disposition home or self-care (01) ==
PROVIDERS: PCP Family Medicine; Visit Provider Student in an Organized Health Care Education/Training Program
PROC: 0DJD8ZZ Inspection of Lower Intestinal Tract, Via Natural or Artificial Opening Endoscopic (ICD-10-PCS; CPT 45378; principal; 2024-06-17 10:00)
DX: Z12.11 Encounter for screening for malignant neoplasm of colon (principal); I10 Essential (primary) hypertension; K64.0 First degree hemorrhoids
CPT/HCPCS: 45378; 00123; J2001; J2704

== ENCOUNTER 2024-09-04 11:48 | Outpatient (CLI) | payer OTHER, SELFPAY ==
--- NOTE | 2024-09-04 10:45 | DI.RAD_ITS ---
Exam(s) XR FOOT RT COMPLETE EXAM: XR FOOT RT COMPLETE CLINICAL HISTORY: comparison xray, baseline xray M79.672 PAIN LEFT FOOT. TECHNIQUE: 2D digital imaging was performed of the right foot. Three images were obtained. AP, obl ique and lateral views were obtained. COMPARISON: No priors for comparison. FINDINGS: BONES: No acute fracture is present. No bony destructive lesion is seen. There is an enthesophyte at the posterior calcaneus. JOINTS: No dislocation present. There are [id number] degenerative changes seen in the foot and ankle characterized by joint space narrowing and osteophytes. There is a hallux valgus deformity. SOFT TISSUE: Normal. IMPRESSION: Degenerative changes of the right foot and hallux valgus deformity. DATA REPOSITORY: RADIATION DOSE DELIVERED:
--- NOTE | 2024-09-04 10:45 | DI.RAD_ITS ---
Exam(s) XR FOOT LT COMPLETE EXAM: XR FOOT LT COMPLETE CLINICAL HISTORY: L foot pain M79.672 M19.072 OSTEOARTHRITIS M20.22 HALLUX RIGIDUS. TECHNIQUE: 2D digital imaging was performed of the left foot. Three images were obtained. AP, obli que and lateral views were obtained. COMPARISON: CR XR foot LT complete from 06/12/2019 FINDINGS: BONES: No acute fracture is present. No bony destructive lesion is seen. There is a small enthesophyt e at the posterior calcaneus. There is a small plantar calcaneal spur. JOINTS: No dislocation present. There is a hallux valgus deformity. There osteophytes seen both ante riorly and posteriorly at the ankle joint. There are degenerative changes seen in the foot. SOFT TISSUE: Dystrophic calcifications are seen medial to the head of the 1st metatarsal bone. IMPRESSION: Hallux valgus deformity and degenerative changes seen in the left foot. DATA REPOSITORY: RADIATION DOSE DELIVERED:
== END 2024-09-04 12:08 ==
LOC: DI 11:49
PROVIDERS: PCP Family Medicine; Visit Provider Podiatrist
DX: M20.21 Hallux rigidus, right foot; M20.22 Hallux rigidus, left foot
CPT/HCPCS: 73630

== ENCOUNTER 2024-09-16 02:28 | Outpatient (CLI) | payer OTHER, SELFPAY ==
[2024-09-16 12:09] LABS: HCT 43.9 % (40.0-50.0); HGB 14.4 g/dL (13.5-17.5); MCH 28.2 pg (27.0-33.0); MCHC 32.8 % (32.0-36.0); MCV 86 fL (80-95); MPV 8.7 fL (8.0-11.0); Platelet Count 225 10^3/uL (130-400); RDW 14.2 % (11.8-14.1); WBC 6.95 10^3/uL (4.4-10.8)
[2024-09-16 13:06] LABS: Anion Gap 7.4 mmol/L (3-11); BUN 16 mg/dL (7-18); CO2 26.6 mmol/L (21.0-32.0); CREATININE 1.2 mg/dL (0.70-1.30); Calcium 9.1 mg/dL (8.5-10.1); Chloride 103 mmol/L (98-107); Estimated GFR 69.23 (mL/min/1.73m2); Glucose 93 mg/dL (74-106); Potassium 3.8 mmol/L (3.5-5.1); Sodium 137 mmol/L (136-145)
== END 2024-09-16 02:29 | disposition home or self-care (01) ==
LOC: LBO 02:28
PROVIDERS: PCP Family Medicine; Visit Provider Student in an Organized Health Care Education/Training Program
DX: M17.11 Unilateral primary osteoarthritis, right knee (principal); Z01.818 Encounter for other preprocedural examination
CPT/HCPCS: 36415; 80048; 85027

== ENCOUNTER 2024-09-16 14:27 | Outpatient (CLI) | payer OTHER, SELFPAY ==
--- NOTE | 2024-09-16 11:15 | DI.RAD_ITS ---
Exam(s) XR KNEE RT 1V XR STANDING ALIGNMENT EXAM: XR STANDING ALIGNMENT and XR knee RT 1 V CLINICAL HISTORY: OA RIGHT KNEE. TECHNIQUE: 2D digital imaging was performed. Five images were obtained. COMPARISON: CR XR HIP RT COMPLETE AP PELVIS from 11/01/2021 CR XR HIP RT AP LAT ONLY from 11/25/2022 CR XR KNEE RT 4V AP,LAT,TILA,PAT from 04/03/2023 FINDINGS: BONES: There again seen findings of a right total hip replacement. There are degenerative changes se en in the left hip. In the right knee, there is moderate narrowing of the medial femoral tibial join t. Osteophytes are seen involving all 3 joint compartments. There is enthesophytes at the anterior patella. There is a small joint effusion. Dystrophic calcifications are seen in the soft tissues correa perior to the patella. In the left knee, mild degenerative changes are present particularly in the l ateral femoral tibial joint. There is narrowing of the ankle joints bilaterally, right greater than left.There is no significant leg length discrepancy. SOFT TISSUE: Normal. IMPRESSION: Osteoarthritis of the knees, right greater than left. DATA REPOSITORY: RADIATION DOSE DELIVERED:
== END 2024-09-16 14:28 | disposition home or self-care (01) ==
LOC: DIORS 14:28
PROVIDERS: PCP Family Medicine; Visit Provider Physician Assistant
DX: M17.11 Unilateral primary osteoarthritis, right knee (principal)
CPT/HCPCS: 73560; 77073

== ENCOUNTER 2024-10-01 09:46 | Day surgery (SDC) | payer OTHER, SELFPAY ==
[2024-10-01] VITALS (36 sets, daily range): BP systolic 83–158; BP diastolic 45–107; PULSE 54–84; RESP 7–23; TEMP 36–36.6; O2SAT 94–100; BMI 30.7
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
--- NOTE | 2024-10-01 09:56 | W.PM.DSUDISC ---
Date of service: 10/01/24 Discharge Plan Disposition Patient Disposition: Home Condition: Good Discharge Details Reason For Visit: Right knee DJD Attending Provider: Gabriel Carias Primary Care Provider: Alex Jesus Home Meds and New Rx's Prescriptions: New celecoxib [Celebrex] 200 mg capsule 200 mg PO BID PRNQty: 60 0RF Rx Instructions: Take one tablet twice daily for pain and inflammation aspirin 81 mg tablet,delayed release (DR/EC) 81 mg PO BID 30 Days Qty: 60 0RF acetaminophen 500 mg tablet 1,000 mg PO Q8H PRN Qty: 90 0RF Rx Instructions: Take two tablets up to every 8 hours as needed for pain pantoprazole 40 mg tablet,delayed release (DR/EC) 40 mg PO DAILY Qty: 14 0RF dexamethasone 4 mg tablet 4 mg PO DAILY Qty: 2 0RF Rx Instructions: Take one tablet once daily for two days docusate sodium [Colace] 100 mg capsule 100 mg PO BID Qty: 30 0RF gabapentin 300 mg capsule 300 mg PO QHS Qty: 14 0RF Rx Instructions: Take one tablet at bedtime oxycodone 5 mg tablet 5 mg PO Q4H PRNQty: 18 0RF Rx Instructions: Take one tablet up to every 4 hours as needed for severe postoperative pain Continued tamsulosin [Flomax] 0.4 mg capsule 0.4 mg PO DAILY atorvastatin 20 mg tablet 20 mg PO DAILY lisinopril 10 mg tablet 5 mg PO DAILY valacyclovir 500 mg tablet 500 mg PO BID PRN Discharge Instructions Additional Instructions: Total Knee Discharge Instructions Activity: The most important activity is to walk and to work on gentle motion (both flexion and extension). You should try to take short walks a few times a day. It is important that when resting you work on keeping the knee straight. Avoid putting a pillow behind the knee as this will encourage flexion. Work on range of motion exercises as provided by Physical Therapy. - Start outpatient physical therapy within 2 weeks. - You should wear the MEKHI hose on both legs for 2 weeks. You may remove these at night. You may also use any compression sock in place of the MEKHI hose. - Utilize [employer] to review exercises, see videos on exercises and obtain basic information pertaining to your surgery and your recovery. Dressing: Remove the Roberto wrap by 2 days after your surgery and put on the MEKHI stocking given to you from the hospital. Keep the surgical dressing (underneath the ROBERTO wrap) in place for at least one week. After the first week it may be removed and replaced with light gauze and tape or nothing. The wound and dressing may get wet after 3 days but avoid soaking the dressing or otherwise it will need to be changed. Many people prefer covering the dressing with cling wrap (saran wrap) to minimize it from getting soaked. If it gets wet, just pat dry. If it starts to peel off then it will need to be changed. Medications: - You should take Tylenol and anti-inflammatory Celebrex as your primary pain control medications. If the Celebrex is too expensive or not covered, please call the office for another alternative (Advil/Ibuprofen or Naproxen/Aleve) - You have been prescribed a stronger pain medication Oxycodone for breakthrough pain, take as needed as prescribed. - You have also been prescribed a stomach acid reduction agent Pantoprozole to help reduce stomach acid and reflux. - You have been prescribed Gabapentin to take at night for restlessness and nerve pain. - You will be taking Aspirin 81mg twice a day for DVT prevention unless instructed otherwise. - You have also been prescribed Decadron to take to control post-operative nausea and pain. You will start this tomorrow. - If you have constipation you should take Colace (which has been prescribed) or Miralax (which is available [id number]). It takes most people 3-4 days to have a bowel movement. Follow-up: 2 weeks If you have any acute concerns or questions, please do not hesitate to contact the office at [phone]. You may contact Dr. Carias with any questions after hours through the hospital at [phone] or on his cell phone at [phone]. Stand Alone Forms: Anesthesia Discharge Inst., Tiffanie.Nerve Block Instructions, Gwen Jackson ([facility]) Referrals: Gabriel Carias MD [ [facility]YSICIAN] - 10/14/24 10:45 am Equipment/Supplies: Walker Activity:: Elevate Remove Dressings/Wound Care:: Do Not Remove Shower/Bathe:: Cover Diet:: As Tolerated Discharge Orders Discharge Orders: Discharge Order (Routine); Ordered 10/01/24 Ordered By: Amanda Calderón
[2024-10-01] MEDS: Gabapentin 300 MG CAP PO (10:38)
[2024-10-01] MEDS: Acetaminophen 500 MG TAB 1000 MG PO (10:38)
[2024-10-01] MEDS: Celecoxib 200 MG CAP 400 MG PO (10:38)
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
[2024-10-01] MEDS: Normal Saline 500 ML 30 ML IV (10:46)
--- NOTE | 2024-10-01 11:25 | W.ANESNERVE ---
Nerve Block Single Injection Procedure Date and Time Date Performed: 10/01/24 Procedure Start: 11:04 Location Where Procedure Performed Procedure Location: Day Surgery Unit Reason Performed: Postoperative Analgesia Requesting Provider: Gabriel Carias Timeout Performed Timeout Performed: Yes Monitoring Used ECG, Blood Pressure, SpO2 and See EMR for corresponding vital signs Sterility Sterility: Hand Hygiene, Surgical Cap, Surgical Mask, Sterile Gloves, Sterile Drape/Sheet and Chlorhexidine Sedation Given During Procedure Sedation Given (Indicate Dose Given): No Sedation given Patient Mental Status Patient Mental Status: Awake Nerve Block 1st Nerve Block: Laterality: Right Block Type: Adductor Canal Ultrasound Image Saved?: Yes Needle / Catheter Used: 100mm SonoPlex II Local Anesthetic Bolus (Indicate Dose Given): Lidocaine used for local infiltration of skin, Injected in 3-5ml increments after negative blood aspiration and Bupivacaine 0.25% Dose:: 15 ml Additives (Indicate Dose Given): None Ultrasound: Sterile probe cover and gel used Nerve Stimulator: Supplement to Ultrasound use and No twitch or parasthesia noted < 0.5 mA Paresthesia: None Procedure Tolerated: No Complications and Patient tolerated well Procedure Outcome: Successful Performed By: Shawna Champagne
[2024-10-01] MEDS: ceFAZolin 2 GM/50 ML BAG IVPB (11:38)
--- NOTE | 2024-10-01 13:13 | W.PM.OP ---
Operative Note Operative Note PRE-OP DIAGNOSIS: Right Knee Osteoarthritis POST-OP DIAGNOSIS: same PROCEDURE: Right Total Knee Replacement SURGEON: Gabriel Carias [employer] TE[employer]ER: Amanda Calderón ANESTHESIA TYPE: Spinal Refer to Anesthesia Record ESTIMATED BLOOD LOSS: 100 PATHOLOGY: none sent TOURNIQUET TIME: 0 COMPLICATIONS: None Patient was transported to: PACU Patient's condition: stable Implants: 1. Depuy Attune Cementless Cruciate Retaining Femoral Component, Size 7 2. Depuy Attune Cementless Fixed Bearing Tibial Component, Size 7 3. Depuy Attune 7x6mm CR/FB Poly 4. Depuy Attune Patellar Component, Size 38 Indications: I have seen David in clinic for symptoms of knee arthritis, confirmed with radiographic findings. He has exhausted nonoperative methods and was having significant limitations in daily function and desired better function and less pain. I discussed the technical details of a knee replacement. I explained the risks of the procedure to include, but not limited to, bleeding, infection, pain, stiffness, fracture, damage to nerves and vessels, damage to muscles and tendons, loosening, need for repeat procedure, blood clot and cardiopulmonary demise. Despite these risks, David elected to proceed. Findings: There was significant signs of arthritis throughout the knee in all 3 compartments, worse medially. Procedure Description: David was greeted in the preoperative holding area where the correct side was identified and marked. The consent was reviewed with the patient and signed. The history and physical was updated. All questions were answered. Preoperative medications were administered: Acetaminophen 1000mg, Celebrex 400mg, and Gabapentin 300mg. An adductor canal block was then administered by the anesthesia team in the DSU. He was taken back to the operating room. A spinal anesthestic was then administered. The patient was placed into the supine position on the operating room table. Posts were placed for positioning during the procedure. All bony prominences were well padded. Prophylactic antibiotics in the form of Cefazolin were administered. 1g of Tranxemic Acid was given intravenously within 30 minutes of incision. The right leg was then prepped with Chloraprep and draped in a standard fashion with impervious stockinette. A second prep with Chloraprep was performed prior to application of Iodine impregnated skin protection. A timeout to confirm correct identity, side and site, procedure, allergies, anesthesia, and medical concerns was performed. With the knee in some flexion, a midline incision was made overlying the knee. Full thickness skin flaps were raised once the extensor mechanism was encountered. These were raised medially and laterally. Any bleeding was controlled with electrocautery. Once the extensor mechanism was fully exposed, a medial parapatellar arthrotomy was performed in a flexed position. All bleeding from the arthrotomy and the geniculate arteries was coagulated. A medial subperiosteal peel was performed with electrocautery to the midcoronal plane. The fat pad was removed while keeping the patellar tendon protected. The anterior distal femur synovium was removed for later visualization. The ACL and PCL were resected and the anterior horn of the lateral meniscus was transected. The knee was then flexed with the patella everted. Large osteophytes from the tibia were removed. Large osteophytes from the femur were removed. Using a step drill, and based on preoperative templating, the femoral canal was entered. This was done with a step drill without any difficulty. The intramedullary distal femoral cut guide was inserted, set to a 4 degree valgus cut and 9mm cut thickness. The distal femoral cut guide was then held in position and pinned. With the soft tissues protected, the distal cut was performed. This was passed over a few times to ensure a planar cut. I then turned attention to the tibia. The extramedullary guide was placed onto the leg. The distal aspect was slid medial to adjust for position of center of ankle and stay in line with shaft of the tibia. Approximately 3-5 degrees of posterior slope was kept in the proximal cutting guide. The center of the guide was aligned with the PCL. The stylus was used to assess cut thickness. The medial side, most involved side, was set for a 5mm cut, corresponding to 9mm laterally. This was then held in position and pinned into place with 2 additional pins and a cross pin for stability. The medial and lateral collateral ligaments were protected and the cut was performed. With this completed, it was assessed and noted to be of appropriate dimensions. The guide was removed. A spacer block was inserted and the knee was brought into extension. The 6mm spacer block provided full extension, without hyperextension and with stability of both the medial and lateral collateral ligaments was assessed. The pins from the femur and the tibia were then removed. The distal femur was then sized. The anterior stylus was placed onto the lateral ridge of the anterior femur. This indicated a size 7 femur. The external rotation of the guide was adjusted to 3 degrees to match the epicondylar axis, perpendicular to Jacqui?s line. The 4-in-1 cutting guide was the placed. The posterior medial femur cut was evaluated and appeared of good thickness. The spacer block was inserted underneath the cutting guide and stability was confirmed in 90 degrees of flexion. An liliane wing was used to confirm appropriate position of the anterior cut to avoid notching. This cutting guide was ensured to be flush on the cut surface and then pinned into place with headed pins. While protecting the soft tissues, quad tendon, and collateral ligaments, the anterior and posterior cuts were performed with a saw. The central two pins were removed and the posterior and anterior chamfers were cut next. The notch-cutting guide was placed. This was pinned to lateralize the femoral component as much as possible while keeping it flush on the cut surface. This was then pinned into position. A reciprocating saw was used to make the notch cut. A rasp smoothed the cut surfaces. The medial and lateral menisci were removed. A trial femoral component was then inserted, impacted down to the cut surfaces, and the lug holes were drilled. A provisional trial tibial component was placed and the knee was brought through range of motion. There was noted to be excellent extension and flexion. There was no significant instability. The patella was tracking without thumbs. A size 6mm polyethylene component provided the best range of motion and stability with less than 2mm gapping with medial and lateral stress and full extension without significant hyperextension. The tibial cut surface was fully exposed. The tibia was then sized as a 7. The tibia had been previously marked during trialing to correspond to the center of the tibial component to help with rotation. The trial was aligned to this marlee, approximately rotated to the medial 1/3rd of the tibial tubercle. The trial was pinned into place. The tibia was prepared with a reamer and a keel punch and lug holes. The knee was then brought into extension and the patella was measured as 25mm. Using the patellar clamp and cut guide, this was resected to a flat surface with at least 13mm of thickness remaining. The size 38 patella fit the best. This was oriented and then clamped into position. The lugs were drilled. The trial components were removed. The final components were opened on the back table. The periosteal and capsular tissues, especially posteriorly, around the knee were then systematically injected with a periarticular cocktail consisting of 246mg of Ropivacaine, 0.5mg of Epinephrine, 0.08mg of Clonidine, and 30mg of Ketorolac, diluted to 100cc. On the back table, with the implants opened, the cement was mixed. One batch of high viscosity cement was prepared with vacuum assistance. After the cement was ready a small amount was placed on the cut surface of the patella and the patellar button was clamped into position and held. While the cement was hardening, the cementless knee components were placed. Starting with the tibial component, the tibia was subluxed anteriorly and the lug holes of the component were lined up. The tibia was then impacted with an impactor and mallet until the tibial component was in contact with the tibia. The final polyethylene component was inserted. Then, the femoral component was inserted. The lug holes were aligned and the component was impacted into position. The knee was irrigated with Surgiphor Betadine solution. This was allowed to sit in the knee for 3 minutes and then it was irrigated out with saline. After the cement had finally cured, approximately 15min, the clamp was removed from the patella and the knee was taken through range of motion. The patella was tracking with a no-thumbs technique. The capsule was then reapproximated with a No. 1 Vicryl at multiple locations. The capsule was finally closed with a No. 2 Stratafix, barbed suture. The second dosing of 1g TXA was started. Deep tissues were then reapproximated with 0 Vicryl and 2-0 Vicryl. The skin was closed with a running 3-0 Monocryl in a subcuticular fashion. This was reinforced with skin glue. A Mepilex silver dressing was applied along with a [id number]-[id number] ISHMAEL wrap. A CryoCuff was applied. David was transferred to the hospital bed without difficulty an suffering no apparent complication. David has a good prognosis. Physical therapy will start today and without restrictions, weight-bearing as tolerated. Aspirin 81mg BID will be used for DVT prophylaxis. Date of Procedure: 10/01/24
--- NOTE | 2024-10-01 14:11 | W.ANESPOSTOP ---
Postoperative Evaluation Date, Time and Location Date Performed: 10/01/24 Time Performed: 14:09 Patient Location: Day Surgery Unit Vital Signs Most Recent Imported Vital Signs: Most Recent Vital Signs Temp Pulse Resp BP Pulse Ox 36.5 C 57 L 14 125/83 98 10/01/24 13:50 10/01/24 13:51 10/01/24 13:51 10/01/24 13:51 10/01/24 13:51 Pain Score Most Recent Pain Score: Most Recent Pain Score Pain Level 0 10/01/24 13:50 Assessment Mental Status: Awake (Alert & Oriented to Patient Baseline) Airway and Respiratory Function: Patent airway with normal (patient baseline) respiratory exam Cardiovascular Function: Hemodynamically Stable Hydration Status: Adequately Hydrated Nausea & Vomiting: No Nausea or Vomiting Pain: Pain is tolerable per patient Peripheral Nerve Block: Regional nerve block not resolved at time of post operative discharge
[2024-10-01] MEDS: oxyCODONE 5 MG TAB PO (14:38)
[2024-10-01] MEDS: Tranexamic Acid 650 MG TAB 1300 MG PO (14:38)
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
== END 2024-10-01 16:48 | disposition home or self-care (01) ==
LOC: SUR 09:47
PROVIDERS: PCP Family Medicine; Visit Provider Student in an Organized Health Care Education/Training Program
PROC: (CPT 27447; principal; 2024-10-01 12:30)
DX: M17.11 Unilateral primary osteoarthritis, right knee (principal); G47.33 Obstructive sleep apnea (adult) (pediatric); I10 Essential (primary) hypertension; Z97.4 Presence of external hearing-aid; G89.18 Other acute postprocedural pain; M25.561 Pain in right knee
CPT/HCPCS: 27447; 64447; 97162; 97530; C1776; J0665; J0690; J1100; J2250; J2371; J2401; J2405; J2704

== ENCOUNTER 2024-10-14 10:36 | Outpatient (CLI) | payer OTHER, SELFPAY ==
--- NOTE | 2024-10-14 10:00 | DI.RAD_ITS ---
Exam(s) XR KNEE RT 1V XR STANDING ALIGNMENT EXAM: XR STANDING ALIGNMENT CLINICAL HISTORY: 1ST POST OP R TKA. TECHNIQUE: 2D digital imaging was performed. Standing AP views were performed from the pelvis throu gh the ankles. COMPARISON: CR XR STANDING ALIGNMENT from 09/16/2024 CR XR KNEE RT 1V from 09/16/2024 CR XR KNEE RT 1V from 10/14/2024 FINDINGS: BONES: No acute fracture is present. No bony destructive lesion is seen. Leg length discrepancy: Mild significant overall leg length discrepancy, with the left ischium and il iac crests projecting a few millimeters superior to the left.. JOINTS: Knees: A total right knee prosthesis has been placed.The alignment is satisfactory. Mild deg enerative changes noted in the left knee. Periarticular spurring. Ankles: Narrowing of the medial tibiotalar joint space is again noted. Hips: Stable appearance of left hip prosthesis. Mild degenerative changes of the left hip. SOFT TISSUE: Anterior soft tissue swelling of the right knee. IMPRESSION: Status post placement a right knee prosthesis Mild overall leg length discrepancy. DATA REPOSITORY: RADIATION DOSE DELIVERED:
== END 2024-10-14 10:37 | disposition home or self-care (01) ==
LOC: DIORS 10:39
PROVIDERS: PCP Family Medicine; Visit Provider Physician Assistant
DX: Z96.651 Presence of right artificial knee joint (principal); Z47.1 Aftercare following joint replacement surgery
CPT/HCPCS: 73560; 77073

== ENCOUNTER 2025-07-11 10:33 | Outpatient (CLI) | payer OTHER, SELFPAY ==
--- NOTE | 2025-07-11 09:00 | DI.RAD_ITS ---
Exam(s) XR KNEE LT 4V AP,LAT,TILA,PAT EXAM: XR KNEE LT 4V AP,LAT,TILA,PAT CLINICAL HISTORY: LEFT KNEE PAIN. TECHNIQUE: 2D digital imaging was performed of the left knee. Four images were obtained. Merchant,AP, lateral and PA tunnel views were obtained. COMPARISON: CR XR STANDING ALIGNMENT from 10/14/2024 FINDINGS: BONES: No acute fracture is present. No bony destructive lesion is seen. There are enthesophytes at the anterior patella. JOINTS: There are degenerative changes involving all 3 joint compartments characterized by joint space narrowing and osteophytes. The findings are most marked in the lateral femoral tibial and patellofemoral joints. There is a small joint effusion present. No loose body. SOFT TISSUE: Normal. IMPRESSION: Marked osteoarthritis of the left knee. DATA REPOSITORY: RADIATION DOSE DELIVERED:
== END 2025-07-11 10:34 | disposition home or self-care (01) ==
LOC: DIORS 10:33
PROVIDERS: PCP Family Medicine; Visit Provider Physician Assistant
DX: M25.562 Pain in left knee (principal); M17.12 Unilateral primary osteoarthritis, left knee
CPT/HCPCS: 73564

== ENCOUNTER 2025-09-22 12:56 | Outpatient (CLI) | payer OTHER, SELFPAY ==
--- NOTE | 2025-09-22 08:45 | DI.RAD_ITS ---
Exam(s) XR KNEE RT 2V AP,LAT EXAM: XR KNEE RT 2V AP,LAT CLINICAL HISTORY: yearly R TKA. TECHNIQUE: 2D digital imaging was performed. Two images were obtained. AP and lateral views were obtained. COMPARISON: CR XR KNEE RT 4V AP,LAT,TILA,PAT from 04/03/2023 CR XR KNEE RT 1V from 09/16/2024 CR XR STANDING ALIGNMENT from 10/14/2024 CR XR KNEE RT 1V from 10/14/2024 FINDINGS: BONES: There are post operative changes of a right total knee arthroplasty present. No fracture or dislocation. There are enthesophytes at the anterior patella. JOINTS: The orthopedic hardware is in good position. There are areas of lucency beneath the tibial component both medially and laterally. There is a joint effusion. SOFT TISSUE: Normal. IMPRESSION: Findings of a right total knee arthroplasty. There are areas of lucency seen around the tibial component both medially and laterally. This may reflect loosening. Please correlate clinically. DATA REPOSITORY: RADIATION DOSE DELIVERED:
== END 2025-09-22 12:57 | disposition home or self-care (01) ==
LOC: DIORS 12:58
PROVIDERS: PCP Family Medicine; Visit Provider Student in an Organized Health Care Education/Training Program
DX: Z96.651 Presence of right artificial knee joint (principal)
CPT/HCPCS: 73560

== ENCOUNTER 2025-09-24 08:44 | Day surgery (SDC) | payer OTHER, SELFPAY ==
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
[2025-09-24] VITALS (12 sets, daily range): BP systolic 98–128; BP diastolic 63–95; PULSE 52–72; RESP 12–16; TEMP 36.1–36.9; O2SAT 96–99; BMI 27.6
--- NOTE | 2025-09-24 07:27 | W.PM.DSUDISC ---
Date of service: 09/24/25 Discharge Plan Disposition Patient Disposition: Home Condition: Good Discharge Details Reason For Visit: R Knee Arthroscopy Attending Provider: Gabriel Carias Primary Care Provider: Alex Jesus Home Meds and New Rx's Prescriptions: New hydrocodone-acetaminophen 5-325 mg tablet 1 tab PO Q6H PRN (Reason: pain) Qty: 6 0RF acetaminophen 500 mg tablet 500 mg PO TID Qty: 90 0RF ibuprofen 600 mg tablet 600 mg PO TID PRN (Reason: pain) Qty: 90 0RF Continued tamsulosin [Flomax] 0.4 mg capsule 0.4 mg PO DAILY atorvastatin 20 mg tablet 20 mg PO DAILY lisinopril 10 mg tablet 5 mg PO DAILY valacyclovir 500 mg tablet 500 mg PO BID PRN Discharge Instructions Stand Alone Forms: [facility] Knee Arthroscopy, Portal Information Referrals: Gabriel Carias MD [ [facility] STAFF PHYSICIAN, Orthopaedic Surgical] Equipment/Supplies: Partial Weight Bearing Crutches Activity:: Activity as Tolerated Remove Dressings/Wound Care:: 72 hours Shower/Bathe:: 72 hours Diet:: As Tolerated Discharge Orders Discharge Orders: Discharge Order (Routine); Ordered 09/24/25 Ordered By: William Perez DS: Diagnosis Discharge Diagnosis (1) Popliteus tendinitis of right lower extremity: Status: Acute
[2025-09-24] MEDS: Lactated Ringers 1,000 ML 80 ML IV (09:15)
[2025-09-24] MEDS: Celecoxib 200 MG CAP 400 MG PO (09:31)
[2025-09-24] MEDS: Acetaminophen 500 MG TAB 1000 MG PO (09:31)
[2025-09-24] MEDS: ceFAZolin 2 GM/50 ML BAG IVPB (10:33)
[2025-09-24] MEDS: TRANEXAMIC ACID/SOD. CHL. 1,000 MG/100 ML BAG 600 MG IVPB (10:41)
[2025-09-24] MEDS: Bupivacaine 0.25% Pres-Free 30 ML VIAL (10:57)
[2025-09-24] MEDS: EPINEPHrine 10 MG/10 ML ML (10:58)
--- NOTE | 2025-09-24 11:52 | W.ANESPOSTOP ---
Postoperative Evaluation Date, Time and Location Date Performed: 09/24/25 Time Performed: 11:52 Patient Location: PACU Vital Signs Most Recent Imported Vital Signs: Most Recent Vital Signs Temp Pulse Resp BP Pulse Ox 36.7 C 57 L 12 123/71 99 09/24/25 11:33 09/24/25 11:46 09/24/25 11:46 09/24/25 11:46 09/24/25 11:46 Pain Score Most Recent Pain Score: Most Recent Pain Score Pain Level 0 09/24/25 11:38 Assessment Mental Status: Awake (Alert & Oriented to Patient Baseline) Airway and Respiratory Function: Patent airway with normal (patient baseline) respiratory exam Cardiovascular Function: Hemodynamically Stable Hydration Status: Adequately Hydrated Nausea & Vomiting: No Nausea or Vomiting Pain: Pain is tolerable per patient Peripheral Nerve Block: Patient did not receive a nerve block
[2025-09-24] MEDS: fentaNYL 100 MCG/2 ML VIAL IVP (11:57)
[2025-09-24] MEDS: HYDROcodone 5/Acetaminophen 325 TAB PO (12:45)
--- NOTE | 2025-09-24 13:25 | W.PM.OP ---
Operative Note Operative Note PRE-OP DIAGNOSIS: Popliteal Entrapment and Synovitis - RIGHT Knee POST-OP DIAGNOSIS: same PROCEDURE: Arthroscopic Synovectomy, Limited - RIGHT Knee SURGEON: Gabriel Carias ANESTHESIA TYPE: General LMA/ETT Refer to Anesthesia Record ESTIMATED BLOOD LOSS: 5 PATHOLOGY: none sent COMPLICATIONS: None Patient was transported to: PACU Patient's condition: stable Indications: I have seen David in clinic for symptoms of synovitis as well as popliteal entrapment following knee replacement surgery. Nonoperative measures were exhausted but disability due to lack of motion persisted. I discussed knee arthroscopy with synovectomy with the patient. I reviewed the risks of the procedure to include, but not limited to, bleeding, infection, pain, continued stiffness, recurrence, blood clot. Despite these risks, the patient elected to proceed. Findings: There is notable inflammatory changes seen about the lateral compartment. There was some fraying of the residual popliteus tendon. Extensive debridement of the lateral compartment along with completion of the resection of the popliteus was performed. Procedure Description: David was greeted in the preoperative holding area where the correct side was identified and marked. The consent was reviewed with the patient and signed. The history and physical was updated. All questions were answered. He was taken back to the operating room. The patient was placed into the supine position on the operating room table. All bony prominences were well padded. Prophylactic antibiotics in the form of Cefazolin were administered. The right leg was then prepped with Chloraprep and draped in a standard fashion with stockinette and extremity drape. A timeout to confirm correct identity, side and site, procedure, allergies, anesthesia, and medical concerns was performed. A standard lateral portal was made at the lateral border of the patella tendon in line with the inferior pole of the patella, soft spot. The skin and deep tissue was incised sharply and the blunt trochar was inserted atraumatically. At this point had visualization of the femoral component. A superolateral portal was then established with spinal needle localization just superior and lateral to the patella. A knife was taken down through the skin and soft tissue to enter the knee joint. Starting in the superior compartment above the femoral component and anterior to the femur I released all scarring between the anterior femoral synovium and the overlying extensor mechanism. I then started working laterally. As a moved into the lateral gutter there was notable increased density of the soft tissue and some inflammatory change. This was released and also resected with a shaver. I used electrocautery to continue debride this tissue such that I can see the entire border of the femoral component laterally, polyethylene, and tibial tray. After this was taken around the edge further investigation showed that the popliteus tendon was already scarred and posteriorly and partially torn. I used the electrocautery to debride this down to release the tendon fully. I also used a shaver to debride this tissue. Synovectomy was performed within the lateral gutter and anteriorly. After completion there was significant space seen around the lateral compartment with full visualization of the posterolateral corner of the tibial tray. There is no impinging tissue. The arthroscope was brought back into the suprapatellar pouch and the leg was in full extension. The knee was thoroughly irrigated with the arthroscopic fluid on high flow and pressure. Inflow was stopped and excess fluid was removed. The wounds were closed with 4-0 Nylon. 0.25% bupivacaine was injected around the portal sites and into the knee. The wounds were dressed with Xeroform, 4x4 gauze, ABD pad, Kerlix and an ISHMAEL wrap. A cryo-cuff was applied. The patient tolerated the procedure well and was returned to the Same Day Surgery area in a stable condition suffering no known complication.. Date of Procedure: 09/24/25
== END 2025-09-24 13:27 | disposition home or self-care (01) ==
LOC: SUR 08:44
PROVIDERS: PCP Family Medicine; Visit Provider Student in an Organized Health Care Education/Training Program
PROC: (CPT 29870; principal; 2025-09-24 11:00)
DX: T84.82XA Fibrosis due to internal orthopedic prosthetic devices, implants and grafts, initial encounter (principal); M65.961 Unspecified synovitis and tenosynovitis, right lower leg; M76.891 Other specified enthesopathies of right lower limb, excluding foot
CPT/HCPCS: 29875; J0665; J0690; J1100; J2405; J2704; J3010; J3475